=== PATIENT | male | born 1955 | race African-American/Black ===

== ENCOUNTER 2022-01-06 15:01 | Emergency (ER) | payer OTHER ==
[~2022-01-06] VITALS: Ht 188 cm; Wt 93.4 kg
[2022-01-06 15:01] VITALS: BP 122/68
--- NOTE | 2022-01-06 15:03 | NUR ---
PT AD YA, VIA GURNEY TO BED 08.
[2022-01-06] MEDS ORDERED: MORPHINE SULFATE 4 MG/ML SYR IVP ONE ×2 (15:10→17:10)
[2022-01-06] MEDS ORDERED: NACL 0.9% 1,000 ML IV ONE (15:15)
--- NOTE | 2022-01-06 15:24 | NUR ---
XRAY AT BEDSIDE
--- NOTE | 2022-01-06 15:40 | NUR ---
66YO MALE PT BIBA FROM [facility] C/O THROBBING 10/10 L KNEE PAIN XTODAY. PT REPORTS FREQUENT REOCCURING KNEE DISLOCATIONS WHICH HE WILL SELF TREAT AND "POP BACK INTO PLACE". PT STATES HEARING A "POP" WHEN ATTEMPING TO LIFT WHILE SITTING WAITING FOR DIALYSIS AT 11AM THIS MORNING. PT UNABLE TO BEAR WEIGHT ON L LEG AT THIS TIME. PT AMBULATES USING CANE AT HOME. PT KNEE PRESENTS WITH MILD SWELLING AND TENDER TO TOUCH. DENIES NUMBING OR LOSS OF SENSATION. PT UNABLE TO LIFT LEG OR BEND AT KNEE. PT DENIES TAKING MEDICATION FOR PAIN PRIOR TO ARRIVAL. PT AAOX4, NO VISIBLE DISTRESS, RESPIRATIONS EVEN AND UNLABORED. HX: DENIES NKA
--- NOTE | 2022-01-06 16:00 | NUR ---
Pain medication given for pt knee pain. Non-pharm interventions ineffective. VSS
[2022-01-06] MEDS ORDERED: oxyCODONE/APAP 5/325 MG 1 TAB TAB PO ONE (16:55)
[2022-01-06] MEDS ORDERED: MORPHINE SULFATE 4 MG/ML SYR ONE (17:12)
[2022-01-06 17:17] VITALS: BP 141/65
[2022-01-06] MEDS ORDERED: ACET-10509 PO (17:27)
--- NOTE | 2022-01-06 17:31 | NUR ---
PER ER MD PT L KNEE IMMOBILIZER APPLIED. + CMS AFTER APPLICATION. PT TOLERATED SPLINT
--- NOTE | 2022-01-06 18:20 | NUR ---
PT PROVIDED CRUTCHES AND TAUGHT ONE ON ONE. PT RETURNED SAFE DEMONSTRATION OF CRUTCHES.
--- NOTE | 2022-01-06 18:26 | NUR ---
CALLED [facility] TO INFORM THEM OF PTS DISCHARGE. HOUSE SUP CALLED FOR SHARI. BRUCE AT [facility] WILL ASSIST PT BACK INTO FACILITY.
--- NOTE | 2022-01-06 18:36 | NUR ---
Patient discharged with v/s stable. Written and verbal after care instructions FOR PATELLAR DISLOCATION given and explained. Patient alert, oriented and verbalized understanding of instructions. Wheel Chair Assisted with to car. All questions addressed prior to discharge. ID band removed. Patient advised to follow up with PMD. Rx of TYLENOL EXTRA STRENGTJ TAB given. Opportunity to ask questions provided and answered. PT PROVIDED WITH UBER RIDE TO [facility]. SANDI CALLED AND NOTIFIED.
--- NOTE | 2022-01-06 18:37 | NUR ---
The patient's care was reviewed and supervised by Amber Grant RN.
== END 2022-01-06 18:36 | disposition home or self-care (01) ==
LOC: MED 15:01
DX: S83.095A Other dislocation of left patella, initial encounter (principal); E11.9 Type 2 diabetes mellitus without complications; N18.6 End stage renal disease; Z79.4 Long term (current) use of insulin; Z79.899 Other long term (current) drug therapy; W18.30XA Fall on same level, unspecified, initial encounter; Y93.89 Activity, other specified; Y92.89 Other specified places as the place of occurrence of the external cause; Y99.8 Other external cause status
CPT/HCPCS: 29505; 73562; 96361; 96374; 96376; 99284; J2270; J7030

== ENCOUNTER 2022-06-22 00:29 | Inpatient (IN) | payer OTHER ==
[~2022-06-22] VITALS: Ht 188 cm; Wt 93.4 kg
[~2022-06-22 00:29] MED LIST: ACET-10509 PO
--- NOTE | 2022-06-22 00:32 | NUR ---
PT FELTON ALS. TAKEN TO BED 1
[2022-06-22 00:44] VITALS: BP 185/84
[2022-06-22] MEDS ORDERED: HYDROcodone/APAP 5/325 MG 1 TAB TAB PO ONE (00:45)
--- NOTE | 2022-06-22 00:45 | NUR ---
Patient resting in bed, A/Ox4, chest rise and fall symmetrical, no s/s of distress.
--- NOTE | 2022-06-22 00:50 | NUR ---
Dr. Shaffer at bedside with patient.
[2022-06-22 01:05] LABS: BASOPHILS % (AUTO) 0.6 % (0.0-2.0); EOSINOPHILS # (AUTO) 0.1 K/uL (0-0.4); EOSINOPHILS % (AUTO) 1.5 % (0.0-4.0); HEMATOCRIT 31.7 % (36-52); HEMOGLOBIN 10.4 g/dL (12.0-18.0); LYMPHOCYTES # (AUTO) 0.8 K/uL (2.0-11.5); LYMPHOCYTES % (AUTO) 18.3 % (20.5-51.1); MEAN CORPUSCULAR HEMOGLOBIN 30 pg (27-31); MEAN CORPUSCULAR HGB CONC 33 g/dL (33-37); MEAN CORPUSCULAR VOLUME 90.7 fL (80-94); MONOCYTES # (AUTO) 0.3 K/uL (0.8-1.0); MONOCYTES % (AUTO) 6.7 % (1.7-9.3); NEUTROPHILS % (AUTO) 72.9 % (42.2-75.2); PLATELET COUNT (AUTO) 139 K/uL (140-450); RED BLOOD CELL COUNT(AUTO) 3.49 MIL/uL (4.20-6.10); RED CELL DISTRIBUTION WIDTH 13.9 % (11.6-13.7); WHITE BLOOD COUNT (AUTO) 4.1 K/uL (4.8-10.8)
[2022-06-22 01:23] LABS: ALBUMIN 2.6 g/dL (3.4-5.0); CARBON DIOXIDE 29.6 mmol/L (21-32); CREATININE 10.7 mg/dL (0.6-1.3); POTASSIUM 4.6 mmol/L (3.5-5.1); TOTAL BILIRUBIN 0.7 mg/dL (0.0-1.0)
[2022-06-22] MEDS ORDERED: ACET-8905 PO (01:27)
[2022-06-22] MEDS ORDERED: LORA10TA19 PO (01:27)
[2022-06-22] MEDS ORDERED: GABA100C PO (01:27)
[2022-06-22] MEDS ORDERED: KETO5SOL OP (01:27)
[2022-06-22] MEDS ORDERED: ACET500P13 PO (01:27)
[2022-06-22] MEDS ORDERED: OFLOS OP (01:27)
[2022-06-22] MEDS ORDERED: SILD100T PO (01:27)
[2022-06-22] MEDS ORDERED: LISI-487 PO (01:27)
[2022-06-22] MEDS ORDERED: TEMA15CA24 PO (01:27)
[2022-06-22] MEDS ORDERED: INSU100V17 SQ (01:27)
[2022-06-22] MEDS ORDERED: CALC667T8 PO (01:27)
[2022-06-22] MEDS ORDERED: DEXT1DRO4 OP (01:27)
[2022-06-22] MEDS ORDERED: PRED5DRO OP (01:27)
[2022-06-22 01:29] LABS: MAGNESIUM 2.2 mg/dL (1.8-2.4)
--- NOTE | 2022-06-22 01:50 | NUR ---
Patient resting in bed, A/Ox4, chest rise and fall symmetrical, no s/s of distress.
--- NOTE | 2022-06-22 03:00 | NUR ---
Patient resting in bed, A/Ox4, chest rise and fall symmetrical, no s/s of distress.
--- NOTE | 2022-06-22 03:56 | NUR ---
Patient will be admitted to care of Keturah CALVIN. Admited to Tele. Will go to room 112B. Belongings list completed. Report to Keturah CALVIN. Keturah CALVIN verbalized understanding of report, no further questions.
[2022-06-22 04:05] VITALS: BP 157/82
--- NOTE | 2022-06-22 04:05 | NUR ---
RECEIVED PT A NEW ADMIT FROM ER. PATIENT IS AWAKE, ALERT AND ORIENTED X 4. ABLE TO AMBULATE WITH CANE. DENIES PAIN AT THIS TIME. DENIES SHORTNESS OF BREATH AT THIS TIME. LEFT FOOT WOUND AND RIGHT BIG TOE SCAB NOTED, PICTURES TAKEN AN PLACED IN THE CHART. SKIN WARM AND DRY TO TOUCH. LEFT ARM AV SHUNT NOTED. BED IN THE LOWEST AND LOCKED POSITION, CALL LIGHT IN REACH, INSTRUCTED PT TO CALL IF ASSISTANCE IS NEEDED.PT VERBALLY AGREED.
[2022-06-22] MEDS ORDERED: INSULIN LISPRO SLIDING SCALE 100 UNITS/ML VIAL SUBQ PRN ×2 (04:50→07:55)
--- NOTE | 2022-06-22 06:24 | NUR ---
PROVIDED JUICE AND CRACKERS PER PT'S REQUEST. DENIES PAIN AT THIS TIME. NO DISTRESS NOTED. ALL NEEDS ATTENDED TO. SAFETY PRECAUTIONS IN PLACE, CALL LIGHT IN REACH.
[2022-06-22 06:50] LABS: ALBUMIN 2.5 g/dL (3.4-5.0); ANION GAP 18.4 (8-16); CARBON DIOXIDE 29.1 mmol/L (21-32); POTASSIUM 4.5 mmol/L (3.5-5.1); TOTAL BILIRUBIN 0.7 mg/dL (0.0-1.0)
[2022-06-22] MEDS ORDERED: BLOOD GLUCOSE MONITORING 1 DEV DEV FS SCH (07:30)
[2022-06-22] MEDS ORDERED: MAG SULF 2000 MG/WATER PREMIX 50 ML IV PRN (07:50)
[2022-06-22] MEDS ORDERED: LORazepam 2 MG/ML VIAL IVP PRN (07:50)
[2022-06-22] MEDS ORDERED: POTASSIUM CHLORIDE 10 MEQ TABER PO PRN (07:50)
[2022-06-22] MEDS ORDERED: DOCUSATE SODIUM 100 MG GELCAP PO PRN (07:50)
[2022-06-22] MEDS ORDERED: ACETAMINOPHEN 325 MG TAB PO PRN (07:50)
[2022-06-22] MEDS ORDERED: ONDANSETRON 4 MG/2 ML VIAL IVP PRN (07:50)
[2022-06-22] MEDS ORDERED: DEXTROSE 50% 50 ML SYR IVP PRN (07:55)
[2022-06-22 08:00] VITALS: BP 155/78
--- NOTE | 2022-06-22 08:14 | NUR ---
RECEIVED PT FROM HOUSE DESIGNER NURSE FOR CONTINUITY OF CARE. PT IN BED AWAKE. AOX4. RESPIRATIONS EVEN AND UNLABORED ON RA. NO SOB, NO DISTRESS NOTED. IV ON R WRIST. L ARM AV SHUNT NOTED. CALL LIGHT WITHIN REACH. PT INSTRUCTED TO USE CALL LIGHT FOR ASSISTANCE. ALL SAFETY MEASURES IN PLACE.
[2022-06-22] MEDS: GABAPENTIN 100 MG CAP PO SCH (08:54)
[2022-06-22] MEDS: lisinopriL 20 MG TAB PO SCH (08:54)
--- NOTE | 2022-06-22 10:26 | NUR ---
PT IN BED ASLEEP. VISIBLE CHEST RISE AND FALL. NO DISTRESS NOTED. CALL LIGHT WITHIN REACH.
--- NOTE | 2022-06-22 10:27 | NUR ---
PATIENT HAS BEEN SCREENED AND CATEGORIZED MODERATE NUTRITION RISK. PATIENT WILL BE SEEN WITHIN 3-5 DAYS OF ADMISSION. REVIEWED BY HAILEE THOMPSON RD
[2022-06-22 12:00] VITALS: BP 172/76
[2022-06-22] MEDS: BLOOD GLUCOSE MONITORING 1 DEV DEV FS SCH ×3 (12:01→20:43)
[2022-06-22] MEDS: PIPERACILLIN/TAZOBACTAM 2.25 GM in DEXTROSE 5% 50 ML IV SCH ×2 (13:00→20:03)
--- NOTE | 2022-06-22 13:00 | NUR ---
ZOSYN DUE AT 1300 NON ADMINISTERED PT IS RECEIVING HEMODIALYSIS.
[2022-06-22 16:00] VITALS: BP 172/73
--- NOTE | 2022-06-22 19:15 | NUR ---
RECEIVED BEDSIDE REPORT FROM DAY SHIFT MARIXA LOFTON FOR CONTINUITY OF CARE. PT IS AAOX4 ON RA. PT NOT IN ANY RESPIRATORY DISTRESS. PT HAS RIGHT HAND 22 GAUGE SALINE LOCK. BED AT THE LOWEST POSITION. HEAD OF THE BED RAISED. WILL CONTINUE TO MONITOR THE PT.
[2022-06-22 20:00] VITALS: BP 150/70
[2022-06-22] MEDS: ZOLPIDEM 10 MG TAB PO PRN (20:03)
[2022-06-22] MEDS: MORPHINE SULFATE 2 MG/ML SYR IVP PRN (20:30)
--- NOTE | 2022-06-22 20:42 | NUR ---
SCHEDULE MEDICATIONS GIVEN. ALSO PT COMPLAIN OF FOOT PAIN 02/01. MORPHINE WAS GIVEN PER MD ORDER. NO OTHER COMPLAINS. WILL CONTINUE TO MONITOR THE PT.
--- NOTE | 2022-06-22 20:43 | NUR ---
BLOOD GLUCOSE CHECKED. RESULTS OF 161 GLUCOSE. PT REFUSED ANY COVERAGE.
[2022-06-22] MEDS ORDERED: TEMAZEPAM 15 MG CAP PO SCH (21:00)
[2022-06-23] VITALS: BP 162/67
--- NOTE | 2022-06-23 00:30 | NUR ---
PT OBSERVED. PT IS NOT IN ANY DISTRESS. PT IS BREATHING EVEN AND UNLABORED. CALL LIGHT WITHIN REACH. WILL CONTINUE TO MONITOR THE PT.
[2022-06-23] MEDS: MORPHINE SULFATE 2 MG/ML SYR IVP PRN (03:54)
--- NOTE | 2022-06-23 03:54 | NUR ---
PT COMPLAIN OF SEVERE PAIN ON FOOT WITH ULCER. MORPHINE GIVEN. NO OTHER COMPLAINS. WILL CONTINUE TO MONITOR THE PT.
[2022-06-23 04:00] VITALS: BP 148/71
[2022-06-23] MEDS: PIPERACILLIN/TAZOBACTAM 2.25 GM in DEXTROSE 5% 50 ML IV SCH (04:10)
[2022-06-23 06:27] LABS: BASOPHILS # (AUTO) 0.1 K/uL (0.00-0.22); BASOPHILS % (AUTO) 1.7 % (0.0-2.0); EOSINOPHILS # (AUTO) 0.1 K/uL (0-0.4); EOSINOPHILS % (AUTO) 2.3 % (0.0-4.0); HEMOGLOBIN 10.1 g/dL (12.0-18.0); LYMPHOCYTES # (AUTO) 0.8 K/uL (2.0-11.5); LYMPHOCYTES % (AUTO) 22.5 % (20.5-51.1); MEAN CORPUSCULAR HEMOGLOBIN 29 pg (27-31); MEAN CORPUSCULAR HGB CONC 33 g/dL (33-37); MEAN CORPUSCULAR VOLUME 89.8 fL (80-94); MONOCYTES # (AUTO) 0.3 K/uL (0.8-1.0); MONOCYTES % (AUTO) 7.6 % (1.7-9.3); NEUTROPHILS # (AUTO) 2.5 K/uL (1.8-7.7); NEUTROPHILS % (AUTO) 65.9 % (42.2-75.2); PLATELET COUNT (AUTO) 156 K/uL (140-450); RED BLOOD CELL COUNT(AUTO) 3.45 MIL/uL (4.20-6.10); WHITE BLOOD COUNT (AUTO) 3.7 K/uL (4.8-10.8)
[2022-06-23 06:52] LABS: ANION GAP 13.2 (8-16); CARBON DIOXIDE 33.6 mmol/L (21-32); POTASSIUM 4.8 mmol/L (3.5-5.1)
[2022-06-23] MEDS: BLOOD GLUCOSE MONITORING 1 DEV DEV FS SCH ×4 (06:57→20:22)
--- NOTE | 2022-06-23 07:20 | NUR ---
ENDORSED PT TO DAY SHIFT RN FOR CONTINUITY OF CARE. PT IS STABLE.
--- NOTE | 2022-06-23 07:21 | NUR ---
RECEIVED PT FROM SLEEVE PRESSER OPERATOR NURSE FOR CONTINUITY OF CARE. PT IN BED WATCHING TV. AOX4. PT ABLE TO VERBALIZE NEEDS. RESPIRATIONS EVEN AND UNLABORED ON RA. NO SOB, NO DISTRESS NOTED. BED IN LOWEST POSITION. CALL LIGHT WITHIN REACH.
[2022-06-23 07:44] LABS: CREATININE 8.4 mg/dL (0.6-1.3)
[2022-06-23 08:00] VITALS: BP 136/76
[2022-06-23] MEDS ORDERED: EPOETIN ALFA-EPBX 10,000 UNITS/ML VIAL SUBQ SCH (08:27)
[2022-06-23] MEDS: lisinopriL 20 MG TAB PO SCH (09:20)
[2022-06-23] MEDS: NIFEdipine 30 MG TABER PO SCH (09:20)
[2022-06-23] MEDS: GABAPENTIN 100 MG CAP PO SCH (09:21)
--- NOTE | 2022-06-23 09:54 | NUR ---
WOUND CARE NOTE: PT. ADMITTED WITH DIABETIC ULCERS TO LEFT PLANTAR AND RIGHT HALLUX. WOUND CONSULT NOT DONE, PT. REFUSES WOUND CONSULT. AND REFUSE IN HOUSE PARK SERVICES SPECIALIST CONSULT WHEN RECOMMEND. PER PT. "NO ONE TOUCH IT, I WILL SEE MY OWN FOOT DOCTOR DR. SANDRA WITH [employer] THAT COVER MY INSURANCE". ABOVE INFORMATION INFORM DR. REED AND PRIMARY NURSE ELBA.
[2022-06-23] MEDS ORDERED: OSELTAMIVIR PHOSPHATE 30 MG CAP PO SCH (10:30)
[2022-06-23 12:00] VITALS: BP 130/80
--- NOTE | 2022-06-23 12:00 | NUR ---
PT IV INFILTRATED. REMOVED IV, PRESSURE APPLIED. ATTEMPTED IV X2 TRIES, WAS UNSUCCESSFUL.
[2022-06-23] MEDS ORDERED: OSEL30CA1 PO (13:16)
--- NOTE | 2022-06-23 14:00 | NUR ---
NURSE ROLDAN ATTEMPTED TO PLACE IV X2 TRIES WAS UNSUCCESSFUL.
--- NOTE | 2022-06-23 15:40 | NUR ---
RECEIVED CALL FROM DIALYSIS NURSE SHE ASKED IF PT WOULD BE DISCHARGED TODAY I ANSWERED HER "NO PT CANT LEAVE TODAY UNTIL HE HAS DIALYSIS, AND DUE TO TRANSPORTATION HE WILL BE LEAVING TOMORROW. DIALYSIS NURSE STATES "OKAY BYE".
[2022-06-23 16:00] VITALS: BP 146/66
--- NOTE | 2022-06-23 16:00 | NUR ---
MARIXA MORIN ATTEMPTED TO PLACE IV ON PT X2 TRIES AND WAS UNSUCCESSFUL. NO IV PLACEMENT AT THIS TIME.
--- NOTE | 2022-06-23 16:50 | NUR ---
SPOKE TO RESEARCH CENTER PARTNER. PT IS TO BE D/C TOMORROW MORNING. TRANSPORT [facility].
--- NOTE | 2022-06-23 16:52 | NUR ---
DC PLANNING: PATIENT IS FROM [facility] PLS CALL [facility] [phone] WHEN HE HAS A DC ORDER. NOTIFIED ROLLY CALVIN.
--- NOTE | 2022-06-23 18:52 | NUR ---
SPOKE TO DIALYSIS NURSE TO ASK WHEN PT WILL RECEIVE DIALYSIS. NURSE STATED THAT SHE SPOKE TO ME EARLIER. DIALYSIS NURSE STATES "YOU SAID PT WOULD LEAVE TOMORROW, MY NURSE ALREADY LEFT". RESTATED THAT PT IS TO BE DISCHARGED TOMORROW MORNING SINCE HE WAS SCHEDULED TO RECEIVE DIALYSIS TODAY AND TRANSPORTATION BACK TO [facility] WAS ARRANGED FOR SUNDAY MORNING. WE WERE WAITING FOR DIALYSIS TO TAKE PLACE TODAY. DIALYSIS NURSE STATES PT WILL RECEIVE DIALYSIS CATERPILLAR TRACTOR OPERATOR TOMORROW.
--- NOTE | 2022-06-23 19:18 | NUR ---
ENDORSED PT TO LANDING WORKER NURSE FOR CONTINUITY OF CARE. PT IN STABLE CONDITION.
--- NOTE | 2022-06-23 19:30 | NUR ---
RECEIVED BEDSIDE REPORT FROM DAY SHIFT RN FOR CONTINUITY OF CARE. PT IS AAOX4 ON RA. PT NOT IN ANY RESPIRATORY DISTRESS. HAS NO IV SITE AND DAY SHIFT WAS UNABLE TO GET IV ACCESS. BED AT THE LOWEST POSITION. HEAD OF THE BED RAISED. WILL CONTINUE TO MONITOR THE PT.
[2022-06-23 20:00] VITALS: BP 138/70
[2022-06-23] MEDS: ZOLPIDEM 10 MG TAB PO PRN (20:17)
--- NOTE | 2022-06-23 20:20 | NUR ---
PT WANTED SOMETHING FOR SLEEP. DUANE GIVEN. PER MD ORDER. NO OTHER COMPLAINS. WILL CONTINUE TO MONITOR THE PT.
--- NOTE | 2022-06-23 23:45 | NUR ---
OBSERVED PT. PT IS SLEEPING COMFORTABLY IN BED. PT NOT IN ANY RESPIRATORY DISTRESS. CALL LIGHT WITHIN REACH. WILL CONTINUE TO MONITOR THE PT.
[2022-06-24] VITALS: BP 135/67
--- NOTE | 2022-06-24 02:50 | NUR ---
OBSERVED PT. PT IS SLEEPING COMFORTABLY IN BED. PT NOT IN ANY RESPIRATORY DISTRESS. CALL LIGHT WITHIN REACH. WILL CONTINUE TO MONITOR THE PT.
[2022-06-24 04:00] VITALS: BP 147/75
--- NOTE | 2022-06-24 04:10 | NUR ---
VITAL SIGNS TAKEN AND STABLE. SAFETY PRECAUTIONS TAKEN. WILL CONTINUE TO MONITOR THE PT.
--- NOTE | 2022-06-24 06:10 | NUR ---
HD NURSE IS HERE TO START PT ON DIALYSIS.
[2022-06-24 06:27] LABS: BASOPHILS % (AUTO) 1.2 % (0.0-2.0); EOSINOPHILS # (AUTO) 0.1 K/uL (0-0.4); EOSINOPHILS % (AUTO) 2.2 % (0.0-4.0); HEMATOCRIT 32.4 % (36-52); HEMOGLOBIN 10.6 g/dL (12.0-18.0); LYMPHOCYTES # (AUTO) 1.1 K/uL (2.0-11.5); LYMPHOCYTES % (AUTO) 25.9 % (20.5-51.1); MEAN CORPUSCULAR HEMOGLOBIN 29 pg (27-31); MEAN CORPUSCULAR HGB CONC 33 g/dL (33-37); MEAN CORPUSCULAR VOLUME 89.8 fL (80-94); MONOCYTES # (AUTO) 0.3 K/uL (0.8-1.0); MONOCYTES % (AUTO) 7.6 % (1.7-9.3); NEUTROPHILS # (AUTO) 2.6 K/uL (1.8-7.7); NEUTROPHILS % (AUTO) 63.1 % (42.2-75.2); PLATELET COUNT (AUTO) 158 K/uL (140-450); RED BLOOD CELL COUNT(AUTO) 3.61 MIL/uL (4.20-6.10); RED CELL DISTRIBUTION WIDTH 14.1 % (11.6-13.7); WHITE BLOOD COUNT (AUTO) 4.1 K/uL (4.8-10.8)
[2022-06-24 06:45] LABS: ANION GAP 16.6 (8-16); CARBON DIOXIDE 28.4 mmol/L (21-32)
[2022-06-24 06:47] LABS: CREATININE 10.2 mg/dL (0.6-1.3)
--- NOTE | 2022-06-24 07:10 | NUR ---
ENDORSED PT TO DAY SHIFT RN FOR CONTINUITY OF CARE. PT IS STABLE.
--- NOTE | 2022-06-24 07:11 | NUR ---
ASSUMED CONTINUITY OF CARE. PT. ON HD AT THIS TIME. NO SIGNS AND SYMPTOMS OF DISCOMFORT NOTED. INITIAL ASSESSMENT DONE. DROPLET AND FALL PRECAUTION APPLIED. CALL LIGHT WITHIN REACH.
[2022-06-24 08:00] VITALS: BP 157/77
[2022-06-24] MEDS: BLOOD GLUCOSE MONITORING 1 DEV DEV FS SCH (08:21)
[2022-06-24] MEDS ORDERED: OSELTAMIVIR PHOSPHATE 30 MG CAP PO SCH (09:00)
--- NOTE | 2022-06-24 09:15 | NUR ---
HD NURSE REPORTED THAT HD WAS DONE AND OUTPUT WAS 3 LITERS. PT. EATING BREAKFAST AT THIS TIME. NO SOB, NOTED.
[2022-06-24] MEDS: GABAPENTIN 100 MG CAP PO SCH (09:21)
[2022-06-24] MEDS: NIFEdipine 30 MG TABER PO SCH (09:21)
[2022-06-24] MEDS: lisinopriL 20 MG TAB PO SCH (09:22)
--- NOTE | 2022-06-24 10:25 | NUR ---
INFORMED DR. GRIFFITH THAT PT. HD WAS DONE AT 0915 AND WILL BE D/C BACK TO [facility]. NO ADDITIONAL ORDER RECEIVED. INFORMED LABOR ARBITRATOR LUDWIG.
--- NOTE | 2022-06-24 10:57 | NUR ---
CALLED CHRISTINA LEO (PT. SISTER) AT REGARDING PT D/C BACK TO [facility]. LEFT MESSAGE AND CALL BACK NUMBER.
--- NOTE | 2022-06-24 10:58 | NUR ---
CALLED ALON COREAS AT AND SPOKE TO MEHRDAD REGARDING PT. D/C BACK TO THEIR FACILITY. INFORMED SKEIN YARN DYER ROSA STEELE.
--- NOTE | 2022-06-24 11:45 | NUR ---
D/C VIA WHEELCHAIR BACK TO [facility]. PT. BROUGHT INFRONT OF ER FOR UBER TRANSPORT PER GUM SCORING MACHINE OPERATOR -ROSA. IN STABLE CONDITION.
== END 2022-06-24 11:53 | DRG 133 ==
LOC: MED 00:29 → MTU 02:26
PROVIDERS: ADMIT Hospitalist; ATTEND Hospitalist
PROC: 5A1D70Z Performance of Urinary Filtration, Intermittent, Less than 6 Hours Per Day (ICD-10-PCS; principal; 2022-06-22)
PROC: 5A1D70Z Performance of Urinary Filtration, Intermittent, Less than 6 Hours Per Day (ICD-10-PCS; 2022-06-24)
DX: J96.01 Acute respiratory failure with hypoxia (principal); N17.0 Acute kidney failure with tubular necrosis; J10.00 Influenza due to other identified influenza virus with unspecified type of pneumonia; E43 Unspecified severe protein-calorie malnutrition; I12.0 Hypertensive chronic kidney disease with stage 5 chronic kidney disease or end stage renal disease; E83.51 Hypocalcemia; D63.8 Anemia in other chronic diseases classified elsewhere; N18.6 End stage renal disease; E11.22 Type 2 diabetes mellitus with diabetic chronic kidney disease; E87.70 Fluid overload, unspecified; L97.519 Non-pressure chronic ulcer of other part of right foot with unspecified severity; Z20.822 Contact with and (suspected) exposure to COVID-19; L97.529 Non-pressure chronic ulcer of other part of left foot with unspecified severity; Z79.1 Long term (current) use of non-steroidal anti-inflammatories (NSAID); Z79.899 Other long term (current) drug therapy; Z68.26 Body mass index [BMI] 26.0-26.9, adult
CPT/HCPCS: 36415; 71045; 80048; 80053; 82948; 83735; 83880; 84484; 85025; 87081; 93005; 99285; J1815; J2270; J2543; J7060; Q0092; Q5106

== ENCOUNTER 2022-07-30 02:47 | Emergency (ER) | payer OTHER ==
[~2022-07-30] VITALS: Ht 188 cm; Wt 93.9 kg
[~2022-07-30 02:47] MED LIST changes: +ACET-8905 PO; +ACET500P13 PO; +CALC667T8 PO; +DEXT1DRO4 OP; +GABA100C PO; +INSU100V17 SQ; +KETO5SOL OP; +LISI-487 PO; +LORA10TA19 PO; +OFLOS OP; +OSEL30CA1 PO; +PRED5DRO OP; +SILD100T PO; +TEMA15CA24 PO
[2022-07-30 02:51] VITALS: BP 186/76
--- NOTE | 2022-07-30 03:00 | NUR ---
PT FELTON DUONG. TAKEN TO BED 11
[2022-07-30] MEDS ORDERED: LISI-487 PO (03:17)
[2022-07-30] MEDS ORDERED: LORA10TA19 PO (03:17)
[2022-07-30] MEDS ORDERED: GABA-636 PO (03:17)
[2022-07-30] MEDS ORDERED: TEMA15CA24 PO (03:17)
[2022-07-30] MEDS ORDERED: ACET-8905 PO (03:17)
[2022-07-30] MEDS ORDERED: INSU100I47 SQ (03:17)
[2022-07-30] MEDS ORDERED: SILD100T PO (03:17)
--- NOTE | 2022-07-30 03:20 | NUR ---
Patient lying in bed, A/Ox4, chest rise and fall symmetrical, no c/o pain or s/s of distress
--- NOTE | 2022-07-30 05:02 | NUR ---
Patient lying in bed, A/Ox4, chest rise and fall symmetrical, no c/o pain or s/s of distress
[2022-07-30 05:36] LABS: EOSINOPHILS # (AUTO) 0.1 K/uL (0-0.4); EOSINOPHILS % (AUTO) 2.3 % (0.0-4.0); HEMATOCRIT 31.6 % (36-52); HEMOGLOBIN 10.2 g/dL (12.0-18.0); LYMPHOCYTES # (AUTO) 0.9 K/uL (2.0-11.5); LYMPHOCYTES % (AUTO) 29.6 % (20.5-51.1); MEAN CORPUSCULAR HEMOGLOBIN 29 pg (27-31); MEAN CORPUSCULAR HGB CONC 32 g/dL (33-37); MEAN CORPUSCULAR VOLUME 88.6 fL (80-94); MONOCYTES # (AUTO) 0.3 K/uL (0.8-1.0); MONOCYTES % (AUTO) 8.8 % (1.7-9.3); NEUTROPHILS # (AUTO) 1.7 K/uL (1.8-7.7); NEUTROPHILS % (AUTO) 58.3 % (42.2-75.2); PLATELET COUNT (AUTO) 101 K/uL (140-450); RED BLOOD CELL COUNT(AUTO) 3.57 MIL/uL (4.20-6.10); RED CELL DISTRIBUTION WIDTH 16.4 % (11.6-13.7)
[2022-07-30 05:58] LABS: ALBUMIN 3.4 g/dL (3.4-5.0); ANION GAP 18.8 (8-16); CARBON DIOXIDE 30.6 mmol/L (21-32); POTASSIUM 4.4 mmol/L (3.5-5.1); TOTAL BILIRUBIN 0.8 mg/dL (0.0-1.0)
[2022-07-30 06:06] LABS: CREATININE 9.7 mg/dL (0.6-1.3)
--- NOTE | 2022-07-30 06:06 | NUR ---
Dr. Hicks examining patient.
[2022-07-30] MEDS ORDERED: lisinopriL 20 MG TAB PO ONE (06:20)
--- NOTE | 2022-07-30 07:01 | NUR ---
Patient lying in bed, A/Ox4, chest rise and fall symmetrical, no c/o pain or s/s of distress
--- NOTE | 2022-07-30 07:12 | NUR ---
Change of shift report given to AM shift Nurse Bean CALVIN. AM shift Nurse Bean RN verbalized understanding of report, no further questions.
--- NOTE | 2022-07-30 07:15 | NUR ---
HANDOFF RECEIVED FROM GUADALUPE CALVIN. VITAL SIGNS TAKEN AND NOTABLE DROB IN SYSTOLIC. PT ALSO ENDORSES 7/10 HEADACHE. OTHYERWISE VITAL SIGNS ARE STABLE AND AFEBRILE. DR SANDOVAL NOTIFIED OF PAIN COMPLAINT IN WHICH PAIN MEDS WERE ORDERED.
[2022-07-30] MEDS ORDERED: HYDROcodone/APAP 5/325 MG 1 TAB TAB PO ONE (08:35)
[2022-07-30 10:27] VITALS: BP 161/99
--- NOTE | 2022-07-30 10:28 | NUR ---
Patient discharged with v/s stable. Written and verbal after care instructions given and explained. Patient verbalized understanding. Ambulance Transport with to [facility]. All questions addressed prior to discharge. Advised to follow up with PMD.
--- NOTE | 2022-07-30 14:13 | NUR ---
CHRISTINA LEO states she is coming to pick pt up
--- NOTE | 2022-07-30 15:00 | NUR ---
Patient discharged with v/s stable. Written and verbal after care instructions given and explained. Patient verbalized understanding. Ambulatory with SISTER VIA CANE to car. All questions addressed prior to discharge. Advised to follow up with PMD.
== END 2022-07-30 14:50 | disposition home or self-care (01) ==
LOC: MED 02:47
DX: I12.0 Hypertensive chronic kidney disease with stage 5 chronic kidney disease or end stage renal disease (principal); E11.22 Type 2 diabetes mellitus with diabetic chronic kidney disease; N18.6 End stage renal disease; R51.9 Headache, unspecified; Z99.2 Dependence on renal dialysis; Z79.899 Other long term (current) drug therapy
CPT/HCPCS: 36415; 70450; 71045; 80053; 83880; 84484; 85025; 93005; 99285

== ENCOUNTER 2022-10-15 01:01 | Emergency (ER) | payer OTHER ==
[~2022-10-15] VITALS: Ht 188 cm; Wt 91.6 kg
[~2022-10-15 01:01] MED LIST changes: -DEXT1DRO4 OP; +GABA-636 PO; -GABA100C PO; +INSU100I47 SQ; -INSU100V17 SQ; -OSEL30CA1 PO
--- NOTE | 2022-10-15 01:04 | NUR ---
PT BIBA BLS ER BED 6
[2022-10-15 01:05] VITALS: BP 190/98
[2022-10-15] MEDS ORDERED: KETOROLAC 30 MG/ML VIAL IM ONE (01:10)
[2022-10-15] MEDS ORDERED: MORPHINE SULFATE 4 MG/ML SYR IM ONE (01:10)
--- NOTE | 2022-10-15 01:15 | NUR ---
PT SPEAKING TO TELE NEURO AT BEDSIDE
[2022-10-15] MEDS ORDERED: MORPHINE SULFATE 4 MG/ML SYR IVP ONE ×2 (01:30→05:05)
[2022-10-15 01:32] LABS: BASOPHILS # (AUTO) 0.1 K/uL (0.00-0.22); BASOPHILS % (AUTO) 1.2 % (0.0-2.0); EOSINOPHILS # (AUTO) 0.1 K/uL (0-0.4); EOSINOPHILS % (AUTO) 2.1 % (0.0-4.0); HEMATOCRIT 29.7 % (36-52); HEMOGLOBIN 9.8 g/dL (12.0-18.0); LYMPHOCYTES # (AUTO) 1.1 K/uL (2.0-11.5); LYMPHOCYTES % (AUTO) 25.5 % (20.5-51.1); MEAN CORPUSCULAR HEMOGLOBIN 30 pg (27-31); MEAN CORPUSCULAR HGB CONC 33 g/dL (33-37); MEAN CORPUSCULAR VOLUME 89.3 fL (80-94); MONOCYTES # (AUTO) 0.5 K/uL (0.8-1.0); NEUTROPHILS # (AUTO) 2.7 K/uL (1.8-7.7); NEUTROPHILS % (AUTO) 60.2 % (42.2-75.2); PLATELET COUNT (AUTO) 111 K/uL (140-450); RED BLOOD CELL COUNT(AUTO) 3.33 MIL/uL (4.20-6.10); RED CELL DISTRIBUTION WIDTH 16.4 % (11.6-13.7); WHITE BLOOD COUNT (AUTO) 4.4 K/uL (4.8-10.8)
--- NOTE | 2022-10-15 01:45 | NUR ---
67 yo/m joleen from [facility] w c/o R shoulder pain radiating up and down x 1pprox 1 day worsening today, pt denies any injury to shoulder, pt reports difficulty moving arm d/t pain. no other deficits at this time. no signs of trauma noted. pmh: htn, dm, renal failure (mwf) allergies: denies
[2022-10-15 01:51] LABS: PROTHROMBIN TIME 10.6 secs (10.8-13.4)
[2022-10-15 01:52] LABS: ALBUMIN 3.1 g/dL (3.4-5.0); ANION GAP 15.6 (8-16); CARBON DIOXIDE 30.4 mmol/L (21-32); TOTAL BILIRUBIN 0.6 mg/dL (0.0-1.0)
[2022-10-15 01:54] LABS: CREATININE 11.6 mg/dL (0.6-1.3)
[2022-10-15] MEDS ORDERED: ASPIRIN 325 MG TAB PO ONE (02:40)
--- NOTE | 2022-10-15 04:00 | NUR ---
pt resting in bed, breathing even and unlabored.
--- NOTE | 2022-10-15 06:27 | NUR ---
pt report called to jourdan parker from [facility]. eta for tx [phone].
--- NOTE | 2022-10-15 06:33 | NUR ---
pt unable to provide urine at this time.
--- NOTE | 2022-10-15 07:06 | NUR ---
[facility] AT BEDSIDE FOR TRANSPORT
[2022-10-15 07:19] VITALS: BP 159/67
--- NOTE | 2022-10-15 07:19 | NUR ---
Patient to be transferred to [facility]. Is being transferred due to HIGHER LEVEL OF CARE. Receiving facility has accepting physician and available space. ER physician has signed transfer form. Patient or responsible libertarian has agreed to transfer and signed form. Patient belongings inventoried and will be sent with patient. Copy of nursing notes, lab reports, EKG, Physicians Orders and X-rays to be sent with patient. Report called to MARIXA SINGH at receiving facility. JAQUELIN TX PT AT THIS TIME.
== END 2022-10-15 07:19 | disposition short-term general hospital (02) ==
LOC: MED 01:01
DX: M25.511 Pain in right shoulder (principal); Z20.822 Contact with and (suspected) exposure to COVID-19; I10 Essential (primary) hypertension; E11.9 Type 2 diabetes mellitus without complications; N18.9 Chronic kidney disease, unspecified; Z79.4 Long term (current) use of insulin; Z79.899 Other long term (current) drug therapy
CPT/HCPCS: 36415; 71045; 80053; 83880; 84484; 85025; 85610; 85730; 87426; 93005; 96374; 96376; 99285; J2270; Q0092

== ENCOUNTER 2022-10-23 05:30 | Inpatient (IN) | payer OTHER ==
[~2022-10-23] VITALS: Ht 188 cm; Wt 93.4 kg
[2022-10-23 05:35] VITALS: BP 202/98
--- NOTE | 2022-10-23 05:48 | NUR ---
Patient taken to bed 7.
[2022-10-23] MEDS ORDERED: INSU100I7 SQ (05:53)
[2022-10-23] MEDS ORDERED: INSU100I47 SQ (05:58)
[2022-10-23] MEDS ORDERED: [UNRECOGNIZED DRUG - CODE] PO (05:59)
--- NOTE | 2022-10-23 06:00 | NUR ---
67 Y/O M presents with epistaxis m1fbsmys intermittently. pt stated he has been spitting up blood on and off. pt stated he has abdominal pain 4/5 witrh R shoulder pain 10. pt is from [facility], ambulatory with assist. pt stated he hasnt been to his dialysis treatments x1week due to bein in the hospital. pt was seen at [facility] last week for R shoulder pt stated PMH-dialysis, diabetes, HTN, NKA
--- NOTE | 2022-10-23 07:21 | NUR ---
Pt report given to Lucila EDWARD. Transfer of care at this time.
--- NOTE | 2022-10-23 07:22 | NUR ---
REPORT RECEIVED FROM YURI EDWARD. ASSUMED CARE AT THIS TIME
--- NOTE | 2022-10-23 07:25 | NUR ---
pt awake and at rest. on monitor technician. bed at lowest position, bed rails upx2.
[2022-10-23] MEDS ORDERED: ONDANSETRON 4 MG/2 ML VIAL IVP ONE (07:35)
--- NOTE | 2022-10-23 07:46 | NUR ---
xray at bedside
[2022-10-23 08:42] LABS: BASOPHILS # (AUTO) 0.1 K/uL (0.00-0.22); BASOPHILS % (AUTO) 0.7 % (0.0-2.0); EOSINOPHILS % (AUTO) 0.6 % (0.0-4.0); HEMATOCRIT 31.6 % (36-52); HEMOGLOBIN 10.5 g/dL (12.0-18.0); LYMPHOCYTES # (AUTO) 0.9 K/uL (2.0-11.5); LYMPHOCYTES % (AUTO) 10.6 % (20.5-51.1); MEAN CORPUSCULAR HEMOGLOBIN 30 pg (27-31); MEAN CORPUSCULAR HGB CONC 33 g/dL (33-37); MEAN CORPUSCULAR VOLUME 88.9 fL (80-94); MONOCYTES # (AUTO) 0.4 K/uL (0.8-1.0); MONOCYTES % (AUTO) 5.3 % (1.7-9.3); NEUTROPHILS # (AUTO) 6.8 K/uL (1.8-7.7); NEUTROPHILS % (AUTO) 82.8 % (42.2-75.2); PLATELET COUNT (AUTO) 119 K/uL (140-450); RED BLOOD CELL COUNT(AUTO) 3.55 MIL/uL (4.20-6.10); RED CELL DISTRIBUTION WIDTH 16.5 % (11.6-13.7); WHITE BLOOD COUNT (AUTO) 8.2 K/uL (4.8-10.8)
[2022-10-23 08:44] LABS: PROTHROMBIN TIME 11.6 secs (10.8-13.4)
[2022-10-23 08:45] LABS: ALBUMIN 3.4 g/dL (3.4-5.0); ANION GAP 26.8 (8-16); CARBON DIOXIDE 22.5 mmol/L (21-32); TOTAL BILIRUBIN 0.7 mg/dL (0.0-1.0)
[2022-10-23 08:48] LABS: CREATININE 22.4 mg/dL (0.6-1.3); POTASSIUM 7.3 mmol/L (3.5-5.1)
[2022-10-23] MEDS ORDERED: guaiFENesin DM 200/20 MG-10 ML 10 ML UDC PO PRN (09:20)
[2022-10-23] MEDS ORDERED: HYDROcodone/APAP 7.5/325 MG 1 TAB PO PRN (09:20)
[2022-10-23] MEDS ORDERED: ONDANSETRON 4 MG/2 ML VIAL IM/IVP PRN (09:20)
[2022-10-23] MEDS ORDERED: ACETAMINOPHEN 325 MG TAB PO PRN (09:20)
[2022-10-23] MEDS ORDERED: DOCUSATE SODIUM 100 MG GELCAP PO PRN (09:20)
[2022-10-23] MEDS ORDERED: POTASSIUM CHLORIDE 10 MEQ TABER PO PRN (09:20)
[2022-10-23 10:16] LABS: PROTHROMBIN TIME 12.1 secs (10.8-13.4)
[2022-10-23 10:27] LABS: CHOL/HDL RATIO 2.2 (1-4.5); FREE T4 (FREE THYROXINE) 1.12 ng/dL (0.76-1.46); MAGNESIUM 2.6 mg/dL (1.8-2.4); PHOSPHORUS 7.6 mg/dL (2.5-4.9); THYROID STIMULATING HORMONE 2.98 uIU/mL (0.34-3.74)
--- NOTE | 2022-10-23 10:52 | NUR ---
Patient will be admitted to care of MD FERNANDEZ. Admited to TELE. Will go to room 118. Belongings list completed. Report to LALITHA CALVIN .
--- NOTE | 2022-10-23 11:10 | NUR ---
AROUND 1105, NURSE RECEIVE PATIENT FROM ER NURSE THAT PATIENT COME FROM [facility] FOR NOSE BLEED & EPIGASTRIC PAIN. PATIENT MISSING DIALYSIS FOR ABOUT WEEKS; DIAGNOSIS ESRD & EPISTAXIS W/ HX OF HX OF DM, HTN, ESRD ON DIALYSIS @MWF; PATIENT IS FULL CODE, NKA, AMBULATORY WITH CANE, ALERT X 3, ON TELE MONITOR, CARDIAC DIET, USE URINAL, SHUNT AT KWAME, PIV AT R. WRIST 20G. POTASSIUM =7.3, TFB=075; DR. RUTLEDGE IS PROBATE CLERK FOR PATIENT. VITAL WITHIN PATIENT'S BASELINE (T-P-R: 97.1-114-20, BP: 172/88, O2 SAT: 98%); WILL CONTINUE TO MONITOR
[2022-10-23 12:00] VITALS: BP 172/88
--- NOTE | 2022-10-23 14:06 | NUR ---
P.T. NOTES P.T. EVAL COMPLETED; REFER TO EVAL FOR DETAILS.
[2022-10-23 16:00] VITALS: BP 180/89
[2022-10-23] MEDS: GABAPENTIN 100 MG CAP PO SCH (17:00)
--- NOTE | 2022-10-23 19:30 | NUR ---
RECEIVED PATIENT FROM AM NURSE FOR CONTINUITY OF CARE. PT IS STABLE
--- NOTE | 2022-10-23 19:58 | NUR ---
ENDORSE PATIENT IN STABLE CONDITION TO PM SHIFT NURSE AFTER DIALYSIS REMOVE 3 LITER FROM PATIENT. PIV R. WRIST SALINE LOCK
--- NOTE | 2022-10-23 21:00 | NUR ---
PATIENT'S BP AT 180/79. REPORTED TO . ORDERED CLONIDINE 0.1 MG PO Q 4H PRN
[2022-10-23] MEDS ORDERED: CLONIDINE HYDROCHLORIDE 0.1 MG TAB PO PRN (23:00)
[2022-10-24] VITALS: BP 156/68
[2022-10-24] MEDS: ZOLPIDEM 5 MG TAB PO PRN (02:49)
[2022-10-24 04:00] VITALS: BP 139/72
[2022-10-24 07:06] LABS: ANION GAP 16.4 (8-16); CARBON DIOXIDE 32.3 mmol/L (21-32); POTASSIUM 4.7 mmol/L (3.5-5.1)
[2022-10-24 07:11] LABS: CREATININE 14.5 mg/dL (0.6-1.3)
--- NOTE | 2022-10-24 07:30 | NUR ---
RECEIVED REPORT FROM ALMOND PASTE MIXER NURSE. PT CURRENTLY RESTING WITH CHEST RISING AND FALLING. NO ACUTE S/S OF DISTRESS, ALL SAFETY MEASURES IN PLACE. CALL LIGHT WITHIN REACH.
[2022-10-24 07:32] LABS: BASOPHILS % (AUTO) 0.7 % (0.0-2.0); EOSINOPHILS % (AUTO) 0.6 % (0.0-4.0); HEMOGLOBIN 9.9 g/dL (12.0-18.0); LYMPHOCYTES # (AUTO) 0.9 K/uL (2.0-11.5); LYMPHOCYTES % (AUTO) 17.1 % (20.5-51.1); MEAN CORPUSCULAR HEMOGLOBIN 30 pg (27-31); MEAN CORPUSCULAR HGB CONC 34 g/dL (33-37); MEAN CORPUSCULAR VOLUME 86.9 fL (80-94); MONOCYTES # (AUTO) 0.5 K/uL (0.8-1.0); MONOCYTES % (AUTO) 9.5 % (1.7-9.3); NEUTROPHILS # (AUTO) 3.9 K/uL (1.8-7.7); NEUTROPHILS % (AUTO) 72.1 % (42.2-75.2); PLATELET COUNT (AUTO) 117 K/uL (140-450); RED BLOOD CELL COUNT(AUTO) 3.33 MIL/uL (4.20-6.10); RED CELL DISTRIBUTION WIDTH 16.3 % (11.6-13.7); WHITE BLOOD COUNT (AUTO) 5.4 K/uL (4.8-10.8)
[2022-10-24 08:00] VITALS: BP 125/64
[2022-10-24] MEDS: GABAPENTIN 100 MG CAP PO SCH ×4 (09:00→17:00)
--- NOTE | 2022-10-24 09:02 | NUR ---
PATIENT HAS BEEN SCREENED AND CATEGORIZED MODERATE NUTRITION RISK. PATIENT WILL BE SEEN WITHIN 3-5 DAYS OF ADMISSION. 10/23/22-10/29/22 REVIEWED BY HAILEE THOMPSON RD
[2022-10-24] MEDS: PANTOPRAZOLE 40 MG TABEC PO SCH (09:26)
[2022-10-24 12:00] VITALS: BP 141/66
--- NOTE | 2022-10-24 13:07 | NUR ---
DC PLANNING ASSESSMENT COMPLETE PLEASE REFER TO ASSESSMENT FOR ADDITIONAL DETAILS ALAN MORRISON DC PLAN IS FOR PT TO RETURN TO [facility] WHEN MEDICALLY STABLE. Addendum: 10/24/22 at 1309 by Paris FOREMAN Amended: Links added.
[2022-10-24] MEDS ORDERED: OXYM15SP72 NS (13:24)
[2022-10-24 16:00] VITALS: BP 139/73
--- NOTE | 2022-10-24 16:16 | NUR ---
PATIENT HAS DISCHARGE ORDER TO GO BACK TO [facility]. CHARGE NURSE JESSICA CALLED AND ASKED IF WE WERE ABLE TO SETUP TRANSPORTATION BECAUSE NURSES DIDN'T CALL TO [facility]. CALLED INSURANCE TO GET TRANSPORTATION AUTH BUT EVERYONE HAD LEFT FOR THE DAY. MESSAGED DIRECTOR MICHELINE TO SEE IF WE WOULD BE ABLE TO PAY FOR TRANSPORT BUT NO ANSWER. PATIENT WILL BE STAYING TONIGHT ANS FIRST THING TOMORROW PT WILL HAVE TRANSPORTATION SET UP.
--- NOTE | 2022-10-24 16:41 | NUR ---
PHYSICAL THERAPY CO-SIGN The Physical Therapy Progress Notes documented by Electro Optics Engineer have been reviewed. Reviewed/Co-Signed by: Lucila Brennan PT Documentation Done by:VEE MANZANARES PV INSTALLER TECH Addendum: 10/24/22 at 1641 by Lucila Brennan PT Amended: Links added.
--- NOTE | 2022-10-24 17:03 | NUR ---
PT STATES IS UNABLE TO TAKE GABAPENTIN DUE TO BEING ALLERGIC, NON ADMINISTERED ALL DAY. MD NOTIFIED.
--- NOTE | 2022-10-24 19:18 | NUR ---
PT HAS BEEN ENDORSED TO CLINICAL RESEARCH PHYSICIAN NURSE, DIALYSIS NURSE STILL AT BEDSIDE. UNABLE TO BE DISCHARGED DUE TO NO TRANSPORTATION BEING AVAILABLE THIS LATE. PT MADE AWARE.
--- NOTE | 2022-10-24 19:25 | NUR ---
RECEIVED PATIENT FROM AM NURSE FOR CONTINUITY OF CARE. PT IS STABLE
[2022-10-24 20:00] VITALS: BP 153/73
[2022-10-25] MEDS: ZOLPIDEM 5 MG TAB PO PRN (01:56)
[2022-10-25 04:00] VITALS: BP 136/74
[2022-10-25 06:52] LABS: ANION GAP 16.1 (8-16); CARBON DIOXIDE 30.3 mmol/L (21-32); POTASSIUM 4.4 mmol/L (3.5-5.1)
[2022-10-25 06:56] LABS: CREATININE 10.9 mg/dL (0.6-1.3)
--- NOTE | 2022-10-25 07:30 | NUR ---
RECEIVED REPORT FROM SNOW REMOVAL SUPERVISOR NURSE. PT CURRENTLY RESTING WITH CHEST RISING AND FALLING. NO ACUTE S/S OF DISTRESS, ALL SAFETY MEASURES IN PLACE. CALL LIGHT WITHIN REACH.
[2022-10-25 07:55] LABS: BASOPHILS # (AUTO) 0.1 K/uL (0.00-0.22); EOSINOPHILS % (AUTO) 0.5 % (0.0-4.0); HEMATOCRIT 30.4 % (36-52); HEMOGLOBIN 10.1 g/dL (12.0-18.0); LYMPHOCYTES # (AUTO) 1.2 K/uL (2.0-11.5); LYMPHOCYTES % (AUTO) 21.3 % (20.5-51.1); MEAN CORPUSCULAR HEMOGLOBIN 30 pg (27-31); MEAN CORPUSCULAR HGB CONC 33 g/dL (33-37); MEAN CORPUSCULAR VOLUME 88.8 fL (80-94); MONOCYTES # (AUTO) 0.5 K/uL (0.8-1.0); NEUTROPHILS # (AUTO) 3.8 K/uL (1.8-7.7); NEUTROPHILS % (AUTO) 68.2 % (42.2-75.2); PLATELET COUNT (AUTO) 130 K/uL (140-450); RED BLOOD CELL COUNT(AUTO) 3.42 MIL/uL (4.20-6.10); RED CELL DISTRIBUTION WIDTH 16.5 % (11.6-13.7); WHITE BLOOD COUNT (AUTO) 5.6 K/uL (4.8-10.8)
[2022-10-25 08:00] VITALS: BP 147/61
--- NOTE | 2022-10-25 08:55 | NUR ---
POLO FROM CASE MANAGEMENT CALLED STATING [facility] NEEDS TO BE CALLED TO BE GIVEN REPORT BEFORE THEY CAN SET UP DISCHARGE.
--- NOTE | 2022-10-25 09:10 | NUR ---
CALLED [facility], , SPOKE WITH JENNIFER. STATED THAT THEY ARE UNABLE TO HAVE PT BE TRANSPORTED TO THE DIALYSIS CENTER, STATED THE TRANSPORT HAS PICKED UP THE PATIENTS ALREADY. PT WILL NEED TO RECEIVE DIALYSIS AT THE HOSPITAL BEFORE TRANSPORT. STATED THE LATEST THEY CAN SET UP TRANSPORT IS 1400. CORWIN, DIALYSIS NURSE CONTACTED, REQUESTING AN ETA ON HER ARRIVAL SO TRANSPORT CAN BE SET UP.
[2022-10-25] MEDS: PANTOPRAZOLE 40 MG TABEC PO SCH (09:20)
--- NOTE | 2022-10-25 09:30 | NUR ---
CORWIN CALLED STATING SHE WILL NOT ARRIVE TILL 1200, TRANSPORT CAN NOT BE SET UP UNTIL AFTER 1600. CASE MANAGEMENT CALLED, VOICEMAIL LEFT.
--- NOTE | 2022-10-25 10:30 | NUR ---
CHARGE NURSE NOTIFIED REGARDING COMMUNICATION WITH [facility], AND CORWIN THE DIALYSIS NURSE. VIRTUAL RECRUITER CALLED POLO FLOTATION TENDER TO INFORM HER THE NEED FOR CASE MANAGEMENT TO SET UP TRANSPORT.
[2022-10-25 12:00] VITALS: BP 147/61
--- NOTE | 2022-10-25 12:02 | NUR ---
MUSTAPHA, PTS POINT OF CONTACT, SISTER, CALLED AND PROVIDED AN UPDATE REGARDING PTS PLAN FOR DISCHARGE AND PENDING CASE MANAGEMENT ARRANGEMENT WITH TRANSPORTATION. ALL QUESTIONS ANSWERED.
--- NOTE | 2022-10-25 14:18 | NUR ---
CALLED [facility] [phone] AND LEFT A MESSAGE TO GIVE REPORT FOR TRANSFER BACK. Addendum: 10/25/22 at 1424 by Agency 02 MARIXA RN CORRECT PHONE NUMBER IS [phone]. SPOKE WITH MILY AND GAVE REPORT. MILY HAD NO QUESTIONS OR CONCERNS.
--- NOTE | 2022-10-25 15:30 | NUR ---
10/25/22 RD INITIAL ASSESSMENT COMPLETED PLEASE REFER TO NUTRITION ASSESSMENT UNDER CARE ACTIVITY FOR ESTIMATED NUTRITIONAL NEEDS. 1. CONTINUE CARDIAC, RENAL DIET TOLERATED 2. MONITOR GI, PO INTAKE, NUTRITION RELATED LAB VALUES. 3. RD TO FOLLOW-UP 7 DAYS, LOW RISK REVIEWED BY HAILEE THOMPSON RD
--- NOTE | 2022-10-25 16:30 | NUR ---
[facility] SKY OBTAINED UBER FOR PT. CONTACTED [facility] AND LET [facility] KNOW THAT PT IS IN TRANSIT VIA UBER TO THEIR FACILITY. [facility] CONFIRMED NO QUESTIONS OR CONCERNS. PT IN STABLE CONDITION POST DIALYSIS. DIALYSIS CONFIRMED REMOVAL OF 2L.
== END 2022-10-25 16:35 | disposition home or self-care (01) | DRG 115 ==
LOC: MED 05:30 → MTU 09:26
PROVIDERS: ADMIT Student in an Organized Health Care Education/Training Program; ATTEND Student in an Organized Health Care Education/Training Program
PROC: 5A1D70Z Performance of Urinary Filtration, Intermittent, Less than 6 Hours Per Day (ICD-10-PCS; principal; 2022-10-23)
PROC: 5A1D70Z Performance of Urinary Filtration, Intermittent, Less than 6 Hours Per Day (ICD-10-PCS; 2022-10-24)
DX: R04.0 Epistaxis (principal); N17.0 Acute kidney failure with tubular necrosis; G93.41 Metabolic encephalopathy; N18.6 End stage renal disease; D63.1 Anemia in chronic kidney disease; E87.1 Hypo-osmolality and hyponatremia; E87.5 Hyperkalemia; E86.0 Dehydration; Z20.822 Contact with and (suspected) exposure to COVID-19; E11.22 Type 2 diabetes mellitus with diabetic chronic kidney disease; Z99.2 Dependence on renal dialysis
CPT/HCPCS: 36415; 71045; 80048; 80053; 82150; 83036; 83690; 83735; 83880; 84100; 84436; 84439; 84443; 84479; 85025; 85610; 85730; 87081; 93005; 96374; 97110; 97112; 97116; 97530; 99285; J2405; Q0092

== ENCOUNTER 2022-11-24 22:38 | Inpatient (IN) | payer OTHER ==
[~2022-11-24] VITALS: Ht 188 cm; Wt 93.4 kg
[~2022-11-24 22:38] MED LIST changes: +OXYM15SP72 NS; +[UNRECOGNIZED DRUG - CODE] PO
--- NOTE | 2022-11-24 22:42 | NUR ---
PT OFFLOADED ALS RUN TO BED 11.
[2022-11-24 22:45] VITALS: BP 197/97
--- NOTE | 2022-11-24 22:45 | NUR ---
68 YO M FELTON FROM [facility] WITH C/C OF SOB WHILE LYING DOWN, PER EMS PT SATING AT 98% ROOM AIR. PT ALSO REPORTS 7/10 LEFT FOOT PAIN D/T DM ULCER. BS 117. PER EMS 12-LEAD IS NORMAL. SHUNT IS ON LEFT UPPER ARM. HX:ESR NKA
--- NOTE | 2022-11-24 22:55 | NUR ---
PT FELT NEAUSEATED. NOTIFIED
[2022-11-24 23:01] LABS: HEMOGLOBIN 10.5 g/dL (12.0-18.0); MEAN CORPUSCULAR HEMOGLOBIN 30 pg (27-31); MEAN CORPUSCULAR HGB CONC 33 g/dL (33-37); MEAN CORPUSCULAR VOLUME 91.7 fL (80-94); PLATELET COUNT (AUTO) 91 K/uL (140-450); RED BLOOD CELL COUNT(AUTO) 3.49 MIL/uL (4.20-6.10); RED CELL DISTRIBUTION WIDTH 16.1 % (11.6-13.7); WHITE BLOOD COUNT (AUTO) 3.9 K/uL (4.8-10.8)
[2022-11-24 23:33] LABS: ALBUMIN 3.2 g/dL (3.4-5.0); ANION GAP 18.2 (8-16); CARBON DIOXIDE 27.1 mmol/L (21-32); POTASSIUM 5.3 mmol/L (3.5-5.1); TOTAL BILIRUBIN 0.8 mg/dL (0.0-1.0)
[2022-11-24 23:35] LABS: BASOPHILS % (MANUAL) 0 % (0-2); EOSINOPHILS % (MANUAL) 1 % (0-4); LYMPHOCYTES % (MANUAL) 33 % (20-46); MONOCYTES % (MANUAL) 8 % (5-12)
[2022-11-24 23:37] LABS: CREATININE 11.8 mg/dL (0.6-1.3)
[2022-11-25] MEDS ORDERED: MORPHINE SULFATE 4 MG/ML SYR IVP ONE (00:05)
[2022-11-25] MEDS ORDERED: INSULIN LISPRO SLIDING SCALE 100 UNITS/ML VIAL SUBQ PRN (01:10)
[2022-11-25] MEDS ORDERED: DEXTROSE 50% 50 ML SYR IVP PRN (01:25)
[2022-11-25 01:35] VITALS: BP 138/87
--- NOTE | 2022-11-25 01:35 | NUR ---
PATIENT ARRIVED TO UNIT VIA GURNEY. PATIENT WAS ABLE TO AMBULATE WITH CANE. PATIENT ALERT AND ORIENTED X 3. ABLE TO URINATE AND WENT TO RESTROOM WITH ASSISTANCE WITH CANE AND ADULT PROTECTIVE CASEWORKER. SKIN ASSESSMENT: PATIENT HAS NO OPEN WOUNDS BUT COMPLAINS OF PAIN TO LEFT PLANTAR. NOTED A PURPLE LIQUID FOR TREATMENT A PREVIOUS FACILITY. NURSING GAVE TYLENOL PRN FOR PAIN. ON S/S OF HYPER/HYPOGLYCEMIA. PATIENT DENIES CHEST PAIN AND NO COMPLAINS OF SOB. PATIENT STATED DIALYSIS WAS DONE 11/24/22 BUT UNAWARE OF THE OUTPUT. SIDE RAILS UP X 2 CALL LIGHT WITHIN REACH. PATIENT INFORMED NURSING THAT HIS EYE SIGHT IS IMPAIRED. NURSING WILL FREQUENT THIS ROOM FOR ANTICIPATED ASSISTANCE. MNURPH1
[2022-11-25] MEDS: ACETAMINOPHEN EXTRA STRENGTH 500 MG TAB PO PRN ×2 (02:00→10:23)
--- NOTE | 2022-11-25 03:54 | NUR ---
PATIENT NOTED WITH AN ELEVATED BLOOD PRESSURE BUT NO COMPLAINTS OF HEADACHE OR PAIN. ALL NEEDS MET. PATIENT KEPT CLEAN AND DRY. SIDE RAILS UP X 2. CALL LIGHT WITHIN REACH. MNURPH1
[2022-11-25 04:00] VITALS: BP 179/77
--- NOTE | 2022-11-25 05:19 | NUR ---
PATIENT NO NOTED S/S OF PAIN. PATIENT WANTS STRONGER MEDICATIONS FOR PAIN IF IT COME ABOUT, SLEEPING MEDICATION, AND NO MORE OF WHATEVER MEDICATION IS CAUSING HIS POTASSIUM TO GO UP. NURSING GAVE EDUCATION AND NOT MEDICATION IS THE CAUSE THAN HIS NEED FOR DIALYSIS. PATIENT UNDERSTOOD AND AGREE. MNURPH1
[2022-11-25 06:50] LABS: BASOPHILS % (AUTO) 0.9 % (0.0-2.0); EOSINOPHILS # (AUTO) 0.1 K/uL (0-0.4); EOSINOPHILS % (AUTO) 1.9 % (0.0-4.0); HEMATOCRIT 31.8 % (36-52); HEMOGLOBIN 10.5 g/dL (12.0-18.0); LYMPHOCYTES # (AUTO) 1.2 K/uL (2.0-11.5); LYMPHOCYTES % (AUTO) 30.6 % (20.5-51.1); MEAN CORPUSCULAR HEMOGLOBIN 30 pg (27-31); MEAN CORPUSCULAR HGB CONC 33 g/dL (33-37); MEAN CORPUSCULAR VOLUME 90.7 fL (80-94); MONOCYTES # (AUTO) 0.3 K/uL (0.8-1.0); MONOCYTES % (AUTO) 7.3 % (1.7-9.3); NEUTROPHILS # (AUTO) 2.3 K/uL (1.8-7.7); NEUTROPHILS % (AUTO) 59.3 % (42.2-75.2); PLATELET COUNT (AUTO) 87 K/uL (140-450); RED CELL DISTRIBUTION WIDTH 16.2 % (11.6-13.7); WHITE BLOOD COUNT (AUTO) 3.8 K/uL (4.8-10.8)
[2022-11-25] MEDS ORDERED: hydrALAZINE 10 MG TAB PO PRN (06:55)
[2022-11-25 07:03] LABS: ALBUMIN 3.2 g/dL (3.4-5.0); ANION GAP 19.3 (8-16); CARBON DIOXIDE 26.3 mmol/L (21-32); POTASSIUM 5.6 mmol/L (3.5-5.1); TOTAL BILIRUBIN 0.9 mg/dL (0.0-1.0)
[2022-11-25 07:15] LABS: CREATININE 11.8 mg/dL (0.6-1.3)
--- NOTE | 2022-11-25 07:22 | NUR ---
ENDORSED SHIFT REPORT TO ERNIE RN, PATIENT WAS STABLE DURING THE REPORT. MNURPH1
--- NOTE | 2022-11-25 07:22 | NUR ---
RECEIVED PATIENT FROM NURSE FOR CARE. PATIENT CARE PLAN REVIEWED. PATIENT CARE CONTINUED.
--- NOTE | 2022-11-25 07:25 | NUR ---
RECEIVED CRITICAL LAB REPORT. INFORMED.
[2022-11-25] MEDS ORDERED: BLOOD GLUCOSE MONITORING 1 DEV DEV FS SCH (07:30)
--- NOTE | 2022-11-25 09:00 | NUR ---
PATIENT SCEHDULED FOR DIALYSIS, DIALYSIS NURSE CONTACTED
--- NOTE | 2022-11-25 12:05 | NUR ---
PATIENT BEGAN DIALYSIS PROCEDURE.
[2022-11-25] MEDS ORDERED: HYDROcodone/APAP 5/325 MG 1 TAB TAB PO PRN (15:05)
[2022-11-25] MEDS ORDERED: ACETAMINOPHEN EXTRA STRENGTH 500 MG TAB PO PRN (15:05)
--- NOTE | 2022-11-25 15:30 | NUR ---
PATIENT COMPLETED DIALYSIS WITH 3 LITERS FLUID REMOVED.
--- NOTE | 2022-11-25 16:30 | NUR ---
PATIENT GETS READY TO GO HOME. PATIENT VERBALIZES FRUSTRATION THAT HE HAS TO STAY IN THE HOSPITAL AFTER DIALYSIS TREATMENT. PATIENT WAS TOLD OF OBSERVATION PLAN FOR CHF, HOWEVER PATIENT REFUSED TO STAY IN THE HOSPIAL ANY LONGER. PATIENT ASKS FOR AMA FORM. PATIENT EDUCATED ON AWAY WITHOUT MEDICAL LEAVE FORM.
--- NOTE | 2022-11-25 17:00 | NUR ---
PATIENT LEAVES HOSPITAL DESPITE BEING ADVISED TO STAY. AMA FORM SIGNED PRIOR TO PATIENT EXITING THE BUILDING. MD INFORMED.
[2022-11-25] MEDS ORDERED: TEMAZEPAM 15 MG CAP PO SCH (21:00)
[2022-11-26] MEDS ORDERED: lisinopriL 20 MG TAB PO SCH (09:00)
[2022-11-26] MEDS ORDERED: GABAPENTIN 100 MG CAP PO SCH (09:00)
== END 2022-11-25 17:16 | disposition left against medical advice (07) | DRG 425 ==
LOC: MED 22:38 → MTU 11-25 01:15
PROVIDERS: ADMIT Family Medicine; ATTEND Family Medicine
PROC: 5A1D70Z Performance of Urinary Filtration, Intermittent, Less than 6 Hours Per Day (ICD-10-PCS; principal; 2022-11-25)
DX: E87.5 Hyperkalemia (principal); I13.2 Hypertensive heart and chronic kidney disease with heart failure and with stage 5 chronic kidney disease, or end stage renal disease; N18.6 End stage renal disease; D69.6 Thrombocytopenia, unspecified; D63.1 Anemia in chronic kidney disease; E11.22 Type 2 diabetes mellitus with diabetic chronic kidney disease; E87.70 Fluid overload, unspecified; E78.5 Hyperlipidemia, unspecified; Z20.822 Contact with and (suspected) exposure to COVID-19; Z53.29 Procedure and treatment not carried out because of patient's decision for other reasons; I50.9 Heart failure, unspecified; Z79.899 Other long term (current) drug therapy; Z79.4 Long term (current) use of insulin; Z79.1 Long term (current) use of non-steroidal anti-inflammatories (NSAID)
CPT/HCPCS: 36415; 71045; 80053; 82948; 83880; 84484; 85025; 85730; 87081; 96374; 99285; J1644; J2270; Q0092

== ENCOUNTER 2023-01-10 02:31 | Inpatient (IN) | payer OTHER ==
[2023-01-10] VITALS (7 sets, daily range): BP systolic 141–156; BP diastolic 69–79; PULSE 59–86; RESP 16–19; TEMP 97.1–97.8; O2SAT 94–99
[~2023-01-10] VITALS: Ht 188 cm; Wt 95.3 kg
--- NOTE | 2023-01-10 02:39 | NUR ---
PT FELTON BLS. TAKEN TO BED 7
[2023-01-10 03:11] LABS: EOSINOPHILS # (AUTO) 0.1 K/uL (0-0.4); EOSINOPHILS % (AUTO) 1.8 % (0.0-4.0); HEMATOCRIT 32.5 % (36-52); HEMOGLOBIN 10.6 g/dL (12.0-18.0); LYMPHOCYTES # (AUTO) 1.1 K/uL (2.0-11.5); MEAN CORPUSCULAR HEMOGLOBIN 30 pg (27-31); MEAN CORPUSCULAR HGB CONC 33 g/dL (33-37); MEAN CORPUSCULAR VOLUME 91.2 fL (80-94); MONOCYTES # (AUTO) 0.3 K/uL (0.8-1.0); MONOCYTES % (AUTO) 7.4 % (1.7-9.3); NEUTROPHILS # (AUTO) 2.3 K/uL (1.8-7.7); NEUTROPHILS % (AUTO) 60.8 % (42.2-75.2); PLATELET COUNT (AUTO) 100 K/uL (140-450); RED BLOOD CELL COUNT(AUTO) 3.57 MIL/uL (4.20-6.10); RED CELL DISTRIBUTION WIDTH 15.3 % (11.6-13.7); WHITE BLOOD COUNT (AUTO) 3.8 K/uL (4.8-10.8)
--- NOTE | 2023-01-10 03:31 | NUR ---
PHLEB AT BEDSIDE FOR LAB DRAWS
[2023-01-10 03:37] LABS: ALBUMIN 3.5 g/dL (3.4-5.0); ANION GAP 29.1 (8-16); ASPARTATE AMINOTRANSFERASE 40 U/L (15-37); CARBON DIOXIDE 21.3 mmol/L (21-32); CHLORIDE 95 mmol/L (98-107); GFR ARICAN-AMERICAN 3 mL/min (>90); GLUCOSE 84 mg/dL (74-106); LIPASE 177 U/L (73-393); SODIUM SERUM 139 mmol/L (136-145); TOTAL BILIRUBIN 0.8 mg/dL (0.0-1.0)
[2023-01-10 03:38] LABS: CREATININE 19.3 mg/dL (0.6-1.3); POTASSIUM 6.4 mmol/L (3.5-5.1); UREA NITROGEN, BLOOD 138 mg/dL (7-18)
--- NOTE | 2023-01-10 04:21 | NUR ---
Dr. Anguiano examining patient.
--- NOTE | 2023-01-10 04:22 | NUR ---
67 Y/O M F[facility] from [facility] c/c of R sharp intermittent chest pain 9/10 radiating to R foot with swelling bilateral and ulcer on L bottom of foot. pt has NVD intermittent. pt has dialysis treatment MWF, but missed sunday appt. pt A&Ox4, ambulatory with cane. pmh- DM, HTN, Dialysis, end stage renal NKA meds-see med rec
[2023-01-10] MEDS ORDERED: ONDANSETRON 4 MG/2 ML VIAL IVP ONE (04:25)
[2023-01-10] MEDS ORDERED: MORPHINE SULFATE 4 MG/ML SYR IVP ONE ×2 (04:25→06:35)
[2023-01-10] MEDS ORDERED: INSULIN REGULAR, HUMAN 100 UNIT/ML VIAL IV ONE (04:25)
[2023-01-10] MEDS ORDERED: SODIUM ZIRCONIUM CYCLOSILICATE 10 GM POWD.PACK PO ONE (04:25)
[2023-01-10] MEDS ORDERED: DEXTROSE 50% 50 ML SYR IVP ONE (04:25)
[2023-01-10] MEDS ORDERED: CALCIUM GLUC 1 GM/50 mL NS BAG 50 ML IV ONE (04:25)
[2023-01-10] MEDS ORDERED: LORazepam 2 MG/ML VIAL IVP PRN (07:15)
[2023-01-10] MEDS ORDERED: ONDANSETRON 4 MG/2 ML VIAL IVP PRN (07:15)
[2023-01-10] MEDS ORDERED: ACETAMINOPHEN 325 MG TAB PO PRN (07:15)
--- NOTE | 2023-01-10 07:22 | NUR ---
67YO M RESTING IN BED UPRIGHT, AOX4, AWAITING FOR BED ASSIGNMENT TO TELEMETRY, PT ON AUTOMATIC GLOVE TURNER AND FORMER. NAD NOTED, SAFETY MAINTAINED, CALL LIGHT WITHIN REACH.
--- NOTE | 2023-01-10 07:23 | NUR ---
Pt report given to Wendy EDWARD. Transfer of care at this time.
--- NOTE | 2023-01-10 08:42 | NUR ---
PATIENT HAS BEEN SCREENED AND CATEGORIZED MODERATE NUTRITION RISK. PATIENT WILL BE SEEN WITHIN 3-5 DAYS OF ADMISSION. 01/13/23-01/15/[address] TH[address]
--- NOTE | 2023-01-10 08:42 | NUR ---
Patient will be admitted to care of [facility]. Admited to TELEMETRY. Will go to room 116A. Belongings list completed. Report to JARED CALVIN.
--- NOTE | 2023-01-10 08:53 | NUR ---
pt arrived in the unit, report is obtained prior the arrival, assessment is done pt is oriented to the new environment , call light in reach ,called for meal as pt said he is hungry . the gerard put up on the wall for no blood pressure on the left hand. pt says he can not see well from both eye but he is not legally blind, vs stable , no pain , admission strip EKG SR 65. [email or web address]
--- NOTE | 2023-01-10 12:21 | NUR ---
DC [age] YRS OLD MALE PATIENT WAS ADMITTED FROM [facility] (ASSISTED LIVING) WITH A DX OF ESRD. PATIENT HAS A HX OF DM, ESRD ON DIALYSIS M-- AND HTN. CXR SHOWED NORMAL. CONTINUED HOME MEDS, CONSULTED WITH CIGARETTE MACHINE OPERATOR ORDERED DIALYSIS. DC PLAN TO RETURN TO [facility] WHEN STABLE. CM TO FOLLOW
--- NOTE | 2023-01-10 13:25 | NUR ---
PATIENT SCHEDULE FOR HD TODAY , CONSENT SIGNED , NO COMPLAIN , STILL UNDER OBSERVE .
[2023-01-10] MEDS ORDERED: INSULIN LISPRO SLIDING SCALE 100 UNITS/ML VIAL SUBQ PRN (16:45)
[2023-01-10] MEDS ORDERED: DEXTROSE 50% 50 ML SYR IVP PRN (16:45)
--- NOTE | 2023-01-10 16:49 | NUR ---
PT BS IS 57, GIVEN BISMARK AND NENO , PT IN DIALYSIS. [id number]
[2023-01-10] MEDS: MORPHINE SULFATE 2 MG/ML SYR IVP PRN (17:51)
--- NOTE | 2023-01-10 17:56 | NUR ---
PT PULLED IV OUT ACCIDENTLY DURING DALASIS. PUT IN 22G NEW IV ON THE RIGHT FOREARM.[id number]
--- NOTE | 2023-01-10 19:10 | NUR ---
shift6 report given to night nurse yan rn , all her question answered .
--- NOTE | 2023-01-10 19:20 | NUR ---
RECEIVED PT FROM AM NURSE FOR CONTINUITY OF CARE. PT IS UNDERGOING DIALYSIS AT THIS TIME
[2023-01-10] MEDS: BLOOD GLUCOSE MONITORING 1 DEV DEV FS SCH (20:49)
--- NOTE | 2023-01-10 21:00 | NUR ---
PATIENTS BLOOD GLUCOSE IS DOWN TO 53, D50 IV PUSH GIVEN. GLUCOSE WENT UP TO 145. WILL CONTINUE TO MONITOR
[2023-01-11] VITALS (7 sets, daily range): BP systolic 135–149; BP diastolic 54–68; PULSE 65–79; RESP 18–20; TEMP 96.4–97.9; O2SAT 94–98
[2023-01-11] MEDS: MORPHINE SULFATE 2 MG/ML SYR IVP PRN ×2 (04:59→09:39)
[2023-01-11 06:42] LABS: BASOPHILS % (AUTO) 0.8 % (0.0-2.0); EOSINOPHILS % (AUTO) 1.2 % (0.0-4.0); HEMATOCRIT 33.2 % (36-52); HEMOGLOBIN 10.9 g/dL (12.0-18.0); LYMPHOCYTES # (AUTO) 0.4 K/uL (2.0-11.5); LYMPHOCYTES % (AUTO) 16.9 % (20.5-51.1); MEAN CORPUSCULAR HEMOGLOBIN 30 pg (27-31); MEAN CORPUSCULAR HGB CONC 33 g/dL (33-37); MEAN CORPUSCULAR VOLUME 91.6 fL (80-94); MONOCYTES # (AUTO) 0.1 K/uL (0.8-1.0); MONOCYTES % (AUTO) 5.3 % (1.7-9.3); NEUTROPHILS # (AUTO) 1.9 K/uL (1.8-7.7); NEUTROPHILS % (AUTO) 75.8 % (42.2-75.2); PLATELET COUNT (AUTO) 92 K/uL (140-450); RED BLOOD CELL COUNT(AUTO) 3.62 MIL/uL (4.20-6.10); RED CELL DISTRIBUTION WIDTH 15.1 % (11.6-13.7); WHITE BLOOD COUNT (AUTO) 2.5 K/uL (4.8-10.8)
[2023-01-11 06:53] LABS: ALBUMIN 3.3 g/dL (3.4-5.0); ANION GAP 19.6 (8-16); MAGNESIUM 2.4 mg/dL (1.8-2.4); PHOSPHORUS 6.8 mg/dL (2.5-4.9); POTASSIUM 5.6 mmol/L (3.5-5.1); TOTAL BILIRUBIN 0.8 mg/dL (0.0-1.0)
[2023-01-11 06:56] LABS: CREATININE 13.1 mg/dL (0.6-1.3)
[2023-01-11] MEDS: BLOOD GLUCOSE MONITORING 1 DEV DEV FS SCH ×4 (07:00→20:37)
--- NOTE | 2023-01-11 07:01 | NUR ---
NEW BUN 69 AND CREATININE 13 RESULTS WHICH IS TRENDING DOWN
--- NOTE | 2023-01-11 07:15 | NUR ---
RECEIVED BEDSIDE ENDORSEMENT FROM WEBSPHERE ADMINISTRATOR NURSE FOR CONTINUITY OF CARE. PT IS AWAKE, NO SIGN OF DISTRESS. CALL LIGHT WITHIN REACH.
--- NOTE | 2023-01-11 12:00 | NUR ---
PT REMAINED STABLE, DIDN'T LIKE LUNCH SO GAVE HIM A SANDWICH TO KEEP BLOOD SUGAR IN NORMAL PARAMETERS. CALL LIGHT WITHIN REACH.
--- NOTE | 2023-01-11 19:35 | NUR ---
GAVE BEDSIDE REPORT TO DRAINAGE DESIGN COORDINATOR NURSE FOR CONTINUITY OF CARE. PT IS AWAKE, NO SIGN OF DISTRESS. CALL LIGHT WITHIN REACH.
--- NOTE | 2023-01-11 19:36 | NUR ---
RECEIVED PT FROM AM NURSE FOR CONTINUITY OF CARE. PT IS STABLE
[2023-01-11] MEDS: SODIUM POLYSTYRENE 15 GM/60 ML UDBTL PO SCH (19:52)
[2023-01-12] VITALS (7 sets, daily range): BP systolic 134–178; BP diastolic 62–75; PULSE 65–88; RESP 18; TEMP 97.5–98; O2SAT 96–100
[2023-01-12] MEDS: SODIUM POLYSTYRENE 15 GM/60 ML UDBTL PO SCH (00:30)
[2023-01-12] MEDS: MORPHINE SULFATE 2 MG/ML SYR IVP PRN (00:35)
[2023-01-12] MEDS: BLOOD GLUCOSE MONITORING 1 DEV DEV FS SCH ×2 (06:50→11:30)
--- NOTE | 2023-01-12 07:15 | NUR ---
RECEIVED BEDSIDE REPORT FROM DATA CODER OPERATOR NURSE FOR CONTINUITY OF CARE. PT IS ASLEEP, AWAKEN BY NAME. NO SIGN OF DISTRESS. CALL LIGHT WITHIN REACH.
--- NOTE | 2023-01-12 14:17 | NUR ---
01/12/23 RD INITIAL ASSESSMENT COMPLETED PLEASE REFER TO NUTRITION ASSESSMENT UNDER CARE ACTIVITY FOR ESTIMATED NUTRITIONAL NEEDS. 1. CONTINUE RENAL AND CCHO 60 GRAM DIET TOLERATED 2. RD ENCOURAGES PATIENT TO CONTINUE TO FOLLOW RENAL DIET ONCE HE LEAVES THE HOSPITAL. 3. RD TO FOLLOW-UP 7 DAYS, LOW RISK MARYLIN ONEAL, RUSSELL
--- NOTE | 2023-01-12 15:00 | NUR ---
PT FINISHED DIALYSIS WITH NO COMPLICATION, 3L REMOVED. PT IS STABLE, NO SIGN OF DISTRESS.CALL LIGHT WITHIN REACH.
--- NOTE | 2023-01-12 16:00 | NUR ---
SPOKE WITH [facility] CM TO ARRANGE TRANSPORTATION. SENIOR [employer]UX [employer] ADMINISTRATOR TIME IS 1929. AUTH# [id number]
--- NOTE | 2023-01-12 17:00 | NUR ---
TRIED CALLING [facility] TO GIVE MY REPORT BUT THEY DIDN'T PRE CODER.
--- NOTE | 2023-01-12 18:15 | NUR ---
PT WAS DISCHARGED, ACCOMPANIED TOWARDS THE EXIT. [facility] PICKER FEEDER PROVIDED UBER FOR THE PT. I TRIED CALLING [employer] MULTIPLE TIMES BUT THEY DIDN'T ELECTRICAL PROSPECTING OBSERVER.PT WAS STABLE, STEADY GAIT. ID BAND AND IV REMOVED.
== END 2023-01-12 18:15 | disposition home or self-care (01) | DRG 425 ==
LOC: MED 02:31 → MTU 07:15
PROVIDERS: ADMIT Hospitalist; ATTEND Hospitalist
PROC: 5A1D70Z Performance of Urinary Filtration, Intermittent, Less than 6 Hours Per Day (ICD-10-PCS; principal; 2023-01-10)
DX: E87.70 Fluid overload, unspecified (principal); I12.0 Hypertensive chronic kidney disease with stage 5 chronic kidney disease or end stage renal disease; E44.1 Mild protein-calorie malnutrition; E11.22 Type 2 diabetes mellitus with diabetic chronic kidney disease; N18.6 End stage renal disease; D63.8 Anemia in other chronic diseases classified elsewhere; E87.5 Hyperkalemia; Z79.4 Long term (current) use of insulin; Z79.899 Other long term (current) drug therapy; Z91.158 Patient's noncompliance with renal dialysis for other reason; Z68.27 Body mass index [BMI] 27.0-27.9, adult
CPT/HCPCS: 36415; 71045; 80053; 82948; 83690; 83735; 84100; 84484; 85025; 87081; 93005; 96374; 96375; 96376; 99291; J0610; J1815; J2270; J2405; Q0092

== ENCOUNTER → 2023-02-13 | Emergency (ER) | payer OTHER ==
[~2023-02-13] VITALS: Ht 172.7 cm; Wt 79.8 kg
[~2023-02-13] MED LIST changes: -ACET-8905 PO; -ACET500P13 PO; +CYCL-711 PO; +CYCLOBENZAPRINE 10 MG TAB PO ONE; +HYDROcodone/APAP 5/325 MG 1 TAB TAB PO ONE; +LIDOCAINE 5% 1 EA PATCH TP ONE; -SILD100T PO
[2023-02-13 18:46] VITALS: BP 132/59; PULSE 83; RESP 17; TEMP 97.4; O2SAT 98
[2023-02-13 20:00] VITALS: BP 125/60; PULSE 84; RESP 17; TEMP 97.3
[2023-02-13 21:00] VITALS: O2SAT 98
== END | disposition home or self-care (01) ==
LOC: MED 18:30
DX: M25.775 Osteophyte, left foot (principal); M79.671 Pain in right foot; I12.0 Hypertensive chronic kidney disease with stage 5 chronic kidney disease or end stage renal disease; E11.22 Type 2 diabetes mellitus with diabetic chronic kidney disease; N18.6 End stage renal disease; Z99.2 Dependence on renal dialysis; Z79.4 Long term (current) use of insulin; Z79.899 Other long term (current) drug therapy
CPT/HCPCS: 73630; 99283

== ENCOUNTER 2023-02-15 14:43 | Inpatient (IN) | payer OTHER ==
[~2023-02-15] VITALS: Ht 188 cm; Wt 90.3 kg
[~2023-02-15 14:43] MED LIST changes: -CYCLOBENZAPRINE 10 MG TAB PO ONE; -HYDROcodone/APAP 5/325 MG 1 TAB TAB PO ONE; -LIDOCAINE 5% 1 EA PATCH TP ONE
[2023-02-15 15:22] VITALS: BP 154/71; PULSE 85; RESP 20; TEMP 98.6; O2SAT 96
[2023-02-15] MEDS ORDERED: MORPHINE SULFATE 4 MG/ML SYR IVP ONE (15:50)
[2023-02-15 16:25] LABS: BASOPHILS % (AUTO) 0.4 % (0.0-2.0); EOSINOPHILS % (AUTO) 0.3 % (0.0-4.0); HEMATOCRIT 35.1 % (36-52); HEMOGLOBIN 11.6 g/dL (12.0-18.0); LYMPHOCYTES # (AUTO) 1.1 K/uL (2.0-11.5); LYMPHOCYTES % (AUTO) 9.7 % (20.5-51.1); MEAN CORPUSCULAR HEMOGLOBIN 30 pg (27-31); MEAN CORPUSCULAR HGB CONC 33 g/dL (33-37); MEAN CORPUSCULAR VOLUME 90.1 fL (80-94); MONOCYTES # (AUTO) 0.7 K/uL (0.8-1.0); MONOCYTES % (AUTO) 5.9 % (1.7-9.3); NEUTROPHILS # (AUTO) 9.3 K/uL (1.8-7.7); NEUTROPHILS % (AUTO) 83.7 % (42.2-75.2); PLATELET COUNT (AUTO) 126 K/uL (140-450); WHITE BLOOD COUNT (AUTO) 11.2 K/uL (4.8-10.8)
[2023-02-15 16:34] LABS: ANION GAP 24.8 (8-16); CALCIUM 8.2 mg/dL (8.5-10.1); CARBON DIOXIDE 24.5 mmol/L (21-32); TOTAL PROTEIN, SERUM 9.8 g/dL (6.4-8.2)
[2023-02-15 16:50] LABS: POTASSIUM 7.3 mmol/L (3.5-5.1)
[2023-02-15 16:51] LABS: CREATININE 18.9 mg/dL (0.6-1.3)
[2023-02-15] MEDS ORDERED: DEXTROSE 50% 50 ML SYR IVP ONE (17:00)
[2023-02-15] MEDS ORDERED: INSULIN REGULAR, HUMAN 100 UNIT/ML VIAL IV ONE (17:00)
[2023-02-15] MEDS ORDERED: CALCIUM GLUC 1 GM/50 mL NS BAG 50 ML IV ONE (17:00)
[2023-02-15] MEDS ORDERED: SODIUM ZIRCONIUM CYCLOSILICATE 10 GM POWD.PACK PO ONE (22:20)
[2023-02-15] MEDS ORDERED: guaiFENesin DM 200/20 MG-10 ML 10 ML UDC PO PRN (22:30)
[2023-02-15] MEDS ORDERED: POTASSIUM CHLORIDE 10 MEQ TABER PO PRN (22:30)
[2023-02-15] MEDS ORDERED: DOCUSATE SODIUM 100 MG GELCAP PO PRN (22:30)
[2023-02-15] MEDS ORDERED: ACETAMINOPHEN 325 MG TAB PO PRN (22:30)
[2023-02-15] MEDS ORDERED: ONDANSETRON 4 MG/2 ML VIAL IM/IVP PRN (22:30)
[2023-02-15 23:05] VITALS: BP 132/69; PULSE 85; RESP 18; TEMP 99.2; O2SAT 96
[2023-02-15] MEDS ORDERED: SODIUM ZIRCONIUM CYCLOSILICATE 10 GM POWD.PACK ONE (23:31)
[2023-02-15] MEDS: HYDROcodone/APAP 7.5/325 MG 1 TAB PO PRN (23:38)
[2023-02-16] VITALS (7 sets, daily range): BP systolic 111–142; BP diastolic 67–76; PULSE 87–96; RESP 18–20; TEMP 96.3–97.5; O2SAT 95–100
[2023-02-16] MEDS ORDERED: VANCOMYCIN 1.25GM PREMIX 250 ML IV SCH (03:05)
[2023-02-16] MEDS ORDERED: VANCOMYCIN 500 MG VIAL ONE (03:13)
[2023-02-16] MEDS ORDERED: VANCOMYCIN 1,000 MG VIAL ONE (03:13)
[2023-02-16] MEDS ORDERED: PIPERACILLIN/TAZOBACTAM 3.375 GM VIAL IV ONE (04:57)
[2023-02-16] MEDS ORDERED: PIPERACILLIN/TAZOBACTAM 3.375 GM in DEXTROSE 5% 50 ML IV SCH (05:00)
[2023-02-16 06:21] LABS: BASOPHILS # (AUTO) 0.1 K/uL (0.00-0.22); BASOPHILS % (AUTO) 0.8 % (0.0-2.0); EOSINOPHILS # (AUTO) 0.1 K/uL (0-0.4); HEMATOCRIT 36.2 % (36-52); HEMOGLOBIN 12.1 g/dL (12.0-18.0); LYMPHOCYTES % (AUTO) 13.4 % (20.5-51.1); MEAN CORPUSCULAR HEMOGLOBIN 30 pg (27-31); MEAN CORPUSCULAR HGB CONC 33 g/dL (33-37); MEAN CORPUSCULAR VOLUME 89.7 fL (80-94); MONOCYTES # (AUTO) 0.4 K/uL (0.8-1.0); MONOCYTES % (AUTO) 4.6 % (1.7-9.3); NEUTROPHILS # (AUTO) 6.1 K/uL (1.8-7.7); NEUTROPHILS % (AUTO) 80.2 % (42.2-75.2); PLATELET COUNT (AUTO) 156 K/uL (140-450); RED BLOOD CELL COUNT(AUTO) 4.04 MIL/uL (4.20-6.10); RED CELL DISTRIBUTION WIDTH 14.9 % (11.6-13.7); WHITE BLOOD COUNT (AUTO) 7.6 K/uL (4.8-10.8)
[2023-02-16 06:31] LABS: ALBUMIN 2.9 g/dL (3.4-5.0); CALCIUM 8.9 mg/dL (8.5-10.1); CARBON DIOXIDE 26.2 mmol/L (21-32); POTASSIUM 4.2 mmol/L (3.5-5.1); TOTAL BILIRUBIN 1.4 mg/dL (0.0-1.0); TOTAL PROTEIN, SERUM 10.1 g/dL (6.4-8.2)
[2023-02-16] MEDS: HYDROcodone/APAP 7.5/325 MG 1 TAB PO PRN ×2 (07:18→21:04)
[2023-02-16] MEDS: PANTOPRAZOLE 40 MG TABEC PO SCH (09:57)
[2023-02-16] MEDS: VANCOMYCIN PER PHARMACY MC SCH (09:57)
[2023-02-16] MEDS: GAUZE TP SCH (12:39)
[2023-02-16] MEDS: PIPERACILLIN/TAZOBACTAM 2.25 GM in DEXTROSE 5% 50 ML IV SCH ×2 (12:39→20:38)
[2023-02-16] MEDS: MORPHINE SULFATE 2 MG/ML SYR IVP PRN (18:40)
[2023-02-16] MEDS: ZOLPIDEM 5 MG TAB PO PRN (20:47)
[2023-02-17 00:01] VITALS: PULSE 89
[2023-02-17] MEDS: HYDROcodone/APAP 7.5/325 MG 1 TAB PO PRN (01:09)
[2023-02-17 04:00] VITALS: PULSE 100
[2023-02-17] MEDS: PIPERACILLIN/TAZOBACTAM 2.25 GM in DEXTROSE 5% 50 ML IV SCH ×3 (04:27→20:43)
[2023-02-17 06:31] LABS: BASOPHILS # (AUTO) 0.1 K/uL (0.00-0.22); EOSINOPHILS # (AUTO) 0.1 K/uL (0-0.4); EOSINOPHILS % (AUTO) 1.1 % (0.0-4.0); HEMATOCRIT 38.3 % (36-52); HEMOGLOBIN 12.7 g/dL (12.0-18.0); LYMPHOCYTES # (AUTO) 1.2 K/uL (2.0-11.5); LYMPHOCYTES % (AUTO) 15.1 % (20.5-51.1); MEAN CORPUSCULAR HEMOGLOBIN 30 pg (27-31); MEAN CORPUSCULAR HGB CONC 33 g/dL (33-37); MEAN CORPUSCULAR VOLUME 90.4 fL (80-94); MONOCYTES # (AUTO) 0.5 K/uL (0.8-1.0); MONOCYTES % (AUTO) 5.7 % (1.7-9.3); NEUTROPHILS # (AUTO) 6.4 K/uL (1.8-7.7); NEUTROPHILS % (AUTO) 77.1 % (42.2-75.2); RED BLOOD CELL COUNT(AUTO) 4.24 MIL/uL (4.20-6.10); RED CELL DISTRIBUTION WIDTH 14.4 % (11.6-13.7); WHITE BLOOD COUNT (AUTO) 8.3 K/uL (4.8-10.8)
[2023-02-17 06:42] LABS: PLATELET COUNT (AUTO) 133 K/uL (140-450)
[2023-02-17 06:52] LABS: ANION GAP 25.9 (8-16); CALCIUM 8.8 mg/dL (8.5-10.1); POTASSIUM 4.9 mmol/L (3.5-5.1); TOTAL BILIRUBIN 1.3 mg/dL (0.0-1.0); TOTAL PROTEIN, SERUM 10.8 g/dL (6.4-8.2)
[2023-02-17 06:56] LABS: CREATININE 13.2 mg/dL (0.6-1.3)
[2023-02-17 08:00] VITALS: PULSE 85; PULSE 89; RESP 18; O2SAT 98
[2023-02-17] MEDS: PANTOPRAZOLE 40 MG TABEC PO SCH (08:17)
[2023-02-17] MEDS: VANCOMYCIN PER PHARMACY MC SCH (09:00)
[2023-02-17] MEDS ORDERED: INSULIN LISPRO SLIDING SCALE 100 UNITS/ML VIAL SUBQ PRN (09:35)
[2023-02-17] MEDS ORDERED: DEXTROSE 50% 50 ML SYR IVP PRN (10:45)
[2023-02-17] MEDS: BLOOD GLUCOSE MONITORING 1 DEV DEV FS SCH ×3 (11:30→20:42)
[2023-02-17 12:00] VITALS: BP 136/69; PULSE 73; PULSE 90; RESP 18; TEMP 97.5; O2SAT 97
[2023-02-17] MEDS: GAUZE TP SCH (13:00)
[2023-02-17 16:00] VITALS: BP 121/59; PULSE 100; PULSE 88; RESP 18; TEMP 97.3; O2SAT 99
[2023-02-17] MEDS: MORPHINE SULFATE 2 MG/ML SYR IVP PRN ×2 (17:08→23:22)
[2023-02-17 20:00] VITALS: BP 132/76; PULSE 83; PULSE 90; RESP 18; TEMP 97; O2SAT 95; O2SAT 99
[2023-02-18] VITALS (7 sets, daily range): BP systolic 115–147; BP diastolic 53–76; PULSE 82–90; RESP 18–20; TEMP 96.5–98.9; O2SAT 96–99
[2023-02-18] MEDS: PIPERACILLIN/TAZOBACTAM 2.25 GM in DEXTROSE 5% 50 ML IV SCH ×3 (05:00→20:43)
[2023-02-18 06:12] LABS: BASOPHILS # (AUTO) 0.1 K/uL (0.00-0.22); EOSINOPHILS # (AUTO) 0.1 K/uL (0-0.4); EOSINOPHILS % (AUTO) 2.1 % (0.0-4.0); HEMATOCRIT 35.4 % (36-52); HEMOGLOBIN 11.9 g/dL (12.0-18.0); LYMPHOCYTES % (AUTO) 15.4 % (20.5-51.1); MEAN CORPUSCULAR HEMOGLOBIN 30 pg (27-31); MEAN CORPUSCULAR HGB CONC 34 g/dL (33-37); MEAN CORPUSCULAR VOLUME 89.2 fL (80-94); MONOCYTES # (AUTO) 0.6 K/uL (0.8-1.0); MONOCYTES % (AUTO) 9.3 % (1.7-9.3); NEUTROPHILS # (AUTO) 4.8 K/uL (1.8-7.7); NEUTROPHILS % (AUTO) 72.2 % (42.2-75.2); PLATELET COUNT (AUTO) 159 K/uL (140-450); RED BLOOD CELL COUNT(AUTO) 3.97 MIL/uL (4.20-6.10); RED CELL DISTRIBUTION WIDTH 14.4 % (11.6-13.7); WHITE BLOOD COUNT (AUTO) 6.7 K/uL (4.8-10.8)
[2023-02-18 06:38] LABS: ALBUMIN 2.4 g/dL (3.4-5.0); ANION GAP 24.2 (8-16); CALCIUM 8.2 mg/dL (8.5-10.1); CARBON DIOXIDE 20.9 mmol/L (21-32); POTASSIUM 5.1 mmol/L (3.5-5.1); TOTAL BILIRUBIN 1.2 mg/dL (0.0-1.0)
[2023-02-18 06:43] LABS: CREATININE 15.2 mg/dL (0.6-1.3)
[2023-02-18] MEDS: BLOOD GLUCOSE MONITORING 1 DEV DEV FS SCH ×4 (06:47→20:42)
[2023-02-18] MEDS: PANTOPRAZOLE 40 MG TABEC PO SCH (08:25)
[2023-02-18] MEDS: VANCOMYCIN PER PHARMACY MC SCH (09:00)
[2023-02-18] MEDS ORDERED: ONDANSETRON 4 MG/2 ML VIAL ONE (10:00)
[2023-02-18] MEDS ORDERED: PROPOFOL 200 MG/20 ML VIAL IV ONE (10:00)
[2023-02-18] MEDS: INSULIN LISPRO SLIDING SCALE 100 UNITS/ML VIAL SUBQ PRN (12:03)
[2023-02-18] MEDS: MORPHINE SULFATE 2 MG/ML SYR IVP PRN ×2 (12:13→21:14)
[2023-02-18] MEDS: GAUZE TP SCH (13:00)
[2023-02-19] VITALS: BP 148/70; PULSE 79; PULSE 84; RESP 17; TEMP 97.3; O2SAT 98
[2023-02-19 04:00] VITALS: BP 134/65; PULSE 85; PULSE 86; RESP 17; TEMP 97.3; O2SAT 96
[2023-02-19] MEDS: PIPERACILLIN/TAZOBACTAM 2.25 GM in DEXTROSE 5% 50 ML IV SCH ×3 (05:42→21:34)
[2023-02-19] MEDS: BLOOD GLUCOSE MONITORING 1 DEV DEV FS SCH ×5 (06:51→20:49)
[2023-02-19 06:52] LABS: BASOPHILS % (AUTO) 0.7 % (0.0-2.0); EOSINOPHILS # (AUTO) 0.1 K/uL (0-0.4); EOSINOPHILS % (AUTO) 2.3 % (0.0-4.0); HEMATOCRIT 34.9 % (36-52); HEMOGLOBIN 11.7 g/dL (12.0-18.0); LYMPHOCYTES # (AUTO) 0.9 K/uL (2.0-11.5); LYMPHOCYTES % (AUTO) 14.9 % (20.5-51.1); MEAN CORPUSCULAR HEMOGLOBIN 30 pg (27-31); MEAN CORPUSCULAR HGB CONC 34 g/dL (33-37); MEAN CORPUSCULAR VOLUME 88.6 fL (80-94); MONOCYTES # (AUTO) 0.7 K/uL (0.8-1.0); MONOCYTES % (AUTO) 10.9 % (1.7-9.3); NEUTROPHILS # (AUTO) 4.5 K/uL (1.8-7.7); NEUTROPHILS % (AUTO) 71.2 % (42.2-75.2); PLATELET COUNT (AUTO) 157 K/uL (140-450); RED BLOOD CELL COUNT(AUTO) 3.94 MIL/uL (4.20-6.10); RED CELL DISTRIBUTION WIDTH 14.2 % (11.6-13.7); WHITE BLOOD COUNT (AUTO) 6.3 K/uL (4.8-10.8)
[2023-02-19 07:27] LABS: ALBUMIN 2.3 g/dL (3.4-5.0); ANION GAP 24.2 (8-16); CALCIUM 8.1 mg/dL (8.5-10.1); CARBON DIOXIDE 20.9 mmol/L (21-32); POTASSIUM 5.1 mmol/L (3.5-5.1); TOTAL BILIRUBIN 1.1 mg/dL (0.0-1.0); TOTAL PROTEIN, SERUM 8.6 g/dL (6.4-8.2)
[2023-02-19 08:00] VITALS: BP 131/67; PULSE 77; PULSE 81; RESP 20; TEMP 96.7; O2SAT 100
[2023-02-19] MEDS ORDERED: BUPIVACAINE-MPF 0.5% 30 ML VIAL INJ ONE (08:54)
[2023-02-19] MEDS: VANCOMYCIN PER PHARMACY MC SCH (09:00)
[2023-02-19 09:07] LABS: INR 1.08 (0.8-1.2); PARTIAL THROMBOPLASTIN TIME 33.2 secs (22-35.6); PROTHROMBIN TIME 11.3 secs (10.8-13.4)
[2023-02-19] MEDS: PANTOPRAZOLE 40 MG TABEC PO SCH (09:07)
[2023-02-19] MEDS ORDERED: HYDROGEN PEROXIDE 3% 240 ML BTL TP ONE (10:01)
[2023-02-19] MEDS ORDERED: PROPOFOL 200 MG/20 ML VIAL IV ONE ×2 (11:15)
[2023-02-19] MEDS ORDERED: ONDANSETRON 4 MG/2 ML VIAL ONE (11:15)
[2023-02-19] MEDS ORDERED: METOCLOPRAMIDE 10 MG/2 ML INJ VIAL IVP PRN (11:22)
[2023-02-19] MEDS ORDERED: LABETALOL 20 MG/4 ML VIAL IVP PRN (11:23)
[2023-02-19] MEDS ORDERED: hydrALAZINE 20 MG/ML VIAL IVP PRN (11:27)
[2023-02-19] MEDS ORDERED: HYDROmorphone 1 MG/ML AMP IVP PRN (11:30)
[2023-02-19 12:00] VITALS: BP 123/61; PULSE 76; PULSE 81; RESP 18; TEMP 97.7; O2SAT 100
[2023-02-19] MEDS: GAUZE TP SCH (13:00)
[2023-02-19 16:00] VITALS: BP 112/58; PULSE 93; PULSE 98; RESP 18; TEMP 98; O2SAT 98
[2023-02-19 20:00] VITALS: PULSE 102; PULSE 77; RESP 18; O2SAT 100
[2023-02-19] MEDS ORDERED: VANCOMYCIN 1,000 MG in DEXTROSE 5% 250 ML IV SCH (20:00)
[2023-02-19] MEDS: ZOLPIDEM 5 MG TAB PO PRN (23:03)
[2023-02-20] VITALS: BP 105/82; PULSE 97; PULSE 98; RESP 18; TEMP 98.1; O2SAT 96
[2023-02-20] MEDS: HYDROcodone/APAP 7.5/325 MG 1 TAB PO PRN (02:47)
[2023-02-20 04:00] VITALS: BP 112/60; PULSE 93; RESP 18; TEMP 98; O2SAT 99
[2023-02-20] MEDS: PIPERACILLIN/TAZOBACTAM 2.25 GM in DEXTROSE 5% 50 ML IV SCH ×3 (04:59→20:46)
[2023-02-20] MEDS: BLOOD GLUCOSE MONITORING 1 DEV DEV FS SCH ×4 (06:17→20:38)
[2023-02-20] MEDS: INSULIN LISPRO SLIDING SCALE 100 UNITS/ML VIAL SUBQ PRN ×3 (06:23→16:37)
[2023-02-20 06:46] LABS: ALBUMIN 2.3 g/dL (3.4-5.0); CALCIUM 8.4 mg/dL (8.5-10.1); CARBON DIOXIDE 23.9 mmol/L (21-32); POTASSIUM 4.9 mmol/L (3.5-5.1)
[2023-02-20 06:50] LABS: BASOPHILS % (AUTO) 0.6 % (0.0-2.0); EOSINOPHILS % (AUTO) 0.3 % (0.0-4.0); HEMATOCRIT 33.3 % (36-52); HEMOGLOBIN 11.2 g/dL (12.0-18.0); LYMPHOCYTES # (AUTO) 0.8 K/uL (2.0-11.5); LYMPHOCYTES % (AUTO) 10.4 % (20.5-51.1); MEAN CORPUSCULAR HEMOGLOBIN 30 pg (27-31); MEAN CORPUSCULAR HGB CONC 34 g/dL (33-37); MEAN CORPUSCULAR VOLUME 88.1 fL (80-94); MONOCYTES # (AUTO) 0.7 K/uL (0.8-1.0); MONOCYTES % (AUTO) 8.1 % (1.7-9.3); NEUTROPHILS # (AUTO) 6.6 K/uL (1.8-7.7); NEUTROPHILS % (AUTO) 80.6 % (42.2-75.2); PLATELET COUNT (AUTO) 191 K/uL (140-450); RED BLOOD CELL COUNT(AUTO) 3.78 MIL/uL (4.20-6.10); WHITE BLOOD COUNT (AUTO) 8.2 K/uL (4.8-10.8)
[2023-02-20 07:31] LABS: CREATININE 11.6 mg/dL (0.6-1.3)
[2023-02-20 08:00] VITALS: BP 117/52; PULSE 84; RESP 18; TEMP 97.4; O2SAT 100
[2023-02-20] MEDS: PANTOPRAZOLE 40 MG TABEC PO SCH (08:59)
[2023-02-20 12:00] VITALS: BP 98/56; PULSE 85; RESP 18; TEMP 97.1; O2SAT 98
[2023-02-20] MEDS: GAUZE TP SCH (13:06)
[2023-02-20 16:00] VITALS: BP 123/62; PULSE 84; RESP 18; TEMP 97.4; O2SAT 100
[2023-02-20 20:00] VITALS: BP 141/66; PULSE 93; RESP 18; TEMP 97.1; O2SAT 100
[2023-02-20] MEDS: MORPHINE SULFATE 2 MG/ML SYR IVP PRN (20:26)
[2023-02-21 04:00] VITALS: BP_SYST 134; BP_SYST 140; BP_DIAS 63; BP_DIAS 65; PULSE 82; PULSE 87; RESP 19; RESP 20; TEMP 96.8; TEMP 96.9; O2SAT 100; O2SAT 99
[2023-02-21] MEDS: PIPERACILLIN/TAZOBACTAM 2.25 GM in DEXTROSE 5% 50 ML IV SCH ×3 (04:39→20:45)
[2023-02-21] MEDS: MORPHINE SULFATE 2 MG/ML SYR IVP PRN ×2 (05:07→16:51)
[2023-02-21] MEDS: BLOOD GLUCOSE MONITORING 1 DEV DEV FS SCH ×4 (06:38→21:14)
[2023-02-21 07:23] LABS: ALBUMIN 2.2 g/dL (3.4-5.0); ANION GAP 16.5 (8-16); CALCIUM 8.6 mg/dL (8.5-10.1); CARBON DIOXIDE 26.9 mmol/L (21-32); POTASSIUM 4.4 mmol/L (3.5-5.1); TOTAL BILIRUBIN 0.9 mg/dL (0.0-1.0)
[2023-02-21 07:26] LABS: BASOPHILS # (AUTO) 0.1 K/uL (0.00-0.22); BASOPHILS % (AUTO) 0.9 % (0.0-2.0); EOSINOPHILS # (AUTO) 0.1 K/uL (0-0.4); EOSINOPHILS % (AUTO) 2.1 % (0.0-4.0); HEMATOCRIT 34.9 % (36-52); HEMOGLOBIN 11.8 g/dL (12.0-18.0); LYMPHOCYTES # (AUTO) 1.2 K/uL (2.0-11.5); LYMPHOCYTES % (AUTO) 17.9 % (20.5-51.1); MEAN CORPUSCULAR HEMOGLOBIN 30 pg (27-31); MEAN CORPUSCULAR HGB CONC 34 g/dL (33-37); MEAN CORPUSCULAR VOLUME 88.4 fL (80-94); MONOCYTES # (AUTO) 0.9 K/uL (0.8-1.0); MONOCYTES % (AUTO) 12.8 % (1.7-9.3); NEUTROPHILS # (AUTO) 4.6 K/uL (1.8-7.7); NEUTROPHILS % (AUTO) 66.3 % (42.2-75.2); PLATELET COUNT (AUTO) 186 K/uL (140-450); RED BLOOD CELL COUNT(AUTO) 3.95 MIL/uL (4.20-6.10); RED CELL DISTRIBUTION WIDTH 14.3 % (11.6-13.7); WHITE BLOOD COUNT (AUTO) 6.9 K/uL (4.8-10.8)
[2023-02-21 07:27] LABS: CREATININE 13.5 mg/dL (0.6-1.3)
[2023-02-21 08:00] VITALS: BP 113/59; PULSE 76; RESP 18; TEMP 96.9; O2SAT 100
[2023-02-21] MEDS: VANCOMYCIN PER PHARMACY MC SCH (09:00)
[2023-02-21] MEDS: PANTOPRAZOLE 40 MG TABEC PO SCH (10:07)
[2023-02-21] MEDS: HYDROcodone/APAP 7.5/325 MG 1 TAB PO PRN ×2 (10:07→20:57)
[2023-02-21] MEDS: GAUZE TP SCH (12:17)
[2023-02-21 16:00] VITALS: BP 112/64; PULSE 88; RESP 18; TEMP 97.1; O2SAT 97
[2023-02-21 20:00] VITALS: BP 122/63; PULSE 94; RESP 20; TEMP 97.7; O2SAT 96
[2023-02-21] MEDS ORDERED: VANCOMYCIN 1,000 MG in DEXTROSE 5% 250 ML IV SCH (20:00)
[2023-02-22] MEDS: ZOLPIDEM 5 MG TAB PO PRN ×2 (00:24→22:52)
[2023-02-22 04:00] VITALS: BP 130/66; PULSE 96; RESP 20; TEMP 98.7; O2SAT 99
[2023-02-22] MEDS: PIPERACILLIN/TAZOBACTAM 2.25 GM in DEXTROSE 5% 50 ML IV SCH ×3 (04:41→20:25)
[2023-02-22 06:41] LABS: BASOPHILS # (AUTO) 0.1 K/uL (0.00-0.22); BASOPHILS % (AUTO) 1.8 % (0.0-2.0); EOSINOPHILS # (AUTO) 0.2 K/uL (0-0.4); HEMATOCRIT 34.4 % (36-52); HEMOGLOBIN 11.6 g/dL (12.0-18.0); LYMPHOCYTES # (AUTO) 1.3 K/uL (2.0-11.5); LYMPHOCYTES % (AUTO) 23.7 % (20.5-51.1); MEAN CORPUSCULAR HEMOGLOBIN 30 pg (27-31); MEAN CORPUSCULAR HGB CONC 34 g/dL (33-37); MONOCYTES # (AUTO) 0.6 K/uL (0.8-1.0); MONOCYTES % (AUTO) 10.9 % (1.7-9.3); NEUTROPHILS # (AUTO) 3.4 K/uL (1.8-7.7); NEUTROPHILS % (AUTO) 60.6 % (42.2-75.2); PLATELET COUNT (AUTO) 239 K/uL (140-450); RED BLOOD CELL COUNT(AUTO) 3.91 MIL/uL (4.20-6.10); RED CELL DISTRIBUTION WIDTH 14.2 % (11.6-13.7); WHITE BLOOD COUNT (AUTO) 5.6 K/uL (4.8-10.8)
[2023-02-22 06:51] LABS: ALBUMIN 2.4 g/dL (3.4-5.0); CARBON DIOXIDE 22.1 mmol/L (21-32); POTASSIUM 4.1 mmol/L (3.5-5.1); TOTAL PROTEIN, SERUM 9.3 g/dL (6.4-8.2)
[2023-02-22 06:52] LABS: CREATININE 9.6 mg/dL (0.6-1.3)
[2023-02-22] MEDS: BLOOD GLUCOSE MONITORING 1 DEV DEV FS SCH ×4 (06:57→20:24)
[2023-02-22 08:00] VITALS: BP 129/66; PULSE 89; RESP 16; TEMP 97.8; O2SAT 99
[2023-02-22] MEDS: VANCOMYCIN PER PHARMACY MC SCH (09:00)
[2023-02-22] MEDS: PANTOPRAZOLE 40 MG TABEC PO SCH (10:45)
[2023-02-22] MEDS: GAUZE TP SCH (13:00)
[2023-02-22] MEDS: INSULIN LISPRO SLIDING SCALE 100 UNITS/ML VIAL SUBQ PRN (18:20)
[2023-02-22 20:00] VITALS: BP 133/67; PULSE 83; RESP 18; TEMP 97.4; O2SAT 100
[2023-02-22] MEDS: MORPHINE SULFATE 2 MG/ML SYR IVP PRN (21:18)
[2023-02-23 04:00] VITALS: BP 123/64; PULSE 83; RESP 18; TEMP 97.6; O2SAT 100
[2023-02-23] MEDS: PIPERACILLIN/TAZOBACTAM 2.25 GM in DEXTROSE 5% 50 ML IV SCH ×3 (04:03→20:01)
[2023-02-23 06:02] LABS: ANION GAP 20.2 (8-16); CALCIUM 8.5 mg/dL (8.5-10.1); CARBON DIOXIDE 21.9 mmol/L (21-32); POTASSIUM 4.1 mmol/L (3.5-5.1)
[2023-02-23 06:18] LABS: CREATININE 11.9 mg/dL (0.6-1.3)
[2023-02-23] MEDS: BLOOD GLUCOSE MONITORING 1 DEV DEV FS SCH ×4 (06:52→20:19)
[2023-02-23] MEDS: INSULIN LISPRO SLIDING SCALE 100 UNITS/ML VIAL SUBQ PRN ×3 (06:54→20:22)
[2023-02-23 08:00] VITALS: PULSE 78; RESP 17; O2SAT 99
[2023-02-23] MEDS: VANCOMYCIN PER PHARMACY MC SCH (09:00)
[2023-02-23] MEDS: PANTOPRAZOLE 40 MG TABEC PO SCH (09:28)
[2023-02-23] MEDS ORDERED: GAUZE TP SCH (13:00)
[2023-02-23] MEDS: MORPHINE SULFATE 2 MG/ML SYR IVP PRN (18:53)
[2023-02-23 20:00] VITALS: BP 98/58; PULSE 87; RESP 17; TEMP 97.2; O2SAT 99
[2023-02-23] MEDS ORDERED: VANCOMYCIN 500 MG in DEXTROSE 5% 100 ML IV SCH (21:00)
[2023-02-24 04:00] VITALS: BP 113/61; PULSE 82; RESP 17; TEMP 97; O2SAT 98
[2023-02-24] MEDS: PIPERACILLIN/TAZOBACTAM 2.25 GM in DEXTROSE 5% 50 ML IV SCH (04:16)
[2023-02-24 06:38] LABS: ANION GAP 22.1 (8-16); CALCIUM 9.2 mg/dL (8.5-10.1); CARBON DIOXIDE 22.7 mmol/L (21-32); POTASSIUM 3.8 mmol/L (3.5-5.1)
[2023-02-24] MEDS: BLOOD GLUCOSE MONITORING 1 DEV DEV FS SCH (07:03)
[2023-02-24] MEDS: VANCOMYCIN PER PHARMACY MC SCH (09:40)
[2023-02-24] MEDS: PANTOPRAZOLE 40 MG TABEC PO SCH (09:40)
== END 2023-02-24 12:16 | disposition home health service (06) | DRG 710 ==
LOC: MED 14:43 → MTU 22:29
PROVIDERS: ADMIT Hospitalist; ATTEND Hospitalist
PROC: 5A1D70Z Performance of Urinary Filtration, Intermittent, Less than 6 Hours Per Day (ICD-10-PCS; 2023-02-15)
PROC: 5A1D70Z Performance of Urinary Filtration, Intermittent, Less than 6 Hours Per Day (ICD-10-PCS; 2023-02-18)
PROC: 0QBN0ZX Excision of Right Metatarsal, Open Approach, Diagnostic (ICD-10-PCS; 2023-02-19)
PROC: 0Y9M0ZZ Drainage of Right Foot, Open Approach (ICD-10-PCS; 2023-02-19)
PROC: 0Y6M0ZF Detachment at Right Foot, Partial 5th Ray, Open Approach (ICD-10-PCS; principal; 2023-02-19 10:00)
PROC: 5A1D70Z Performance of Urinary Filtration, Intermittent, Less than 6 Hours Per Day (ICD-10-PCS; 2023-02-20)
PROC: 5A1D70Z Performance of Urinary Filtration, Intermittent, Less than 6 Hours Per Day (ICD-10-PCS; 2023-02-22)
DX: A41.9 Sepsis, unspecified organism (principal); I12.0 Hypertensive chronic kidney disease with stage 5 chronic kidney disease or end stage renal disease; E44.0 Moderate protein-calorie malnutrition; E87.1 Hypo-osmolality and hyponatremia; D63.1 Anemia in chronic kidney disease; E11.22 Type 2 diabetes mellitus with diabetic chronic kidney disease; L03.115 Cellulitis of right lower limb; E11.69 Type 2 diabetes mellitus with other specified complication; M86.8X7 Other osteomyelitis, ankle and foot; N18.6 End stage renal disease; R65.10 Systemic inflammatory response syndrome (SIRS) of non-infectious origin without acute organ dysfunction; E11.621 Type 2 diabetes mellitus with foot ulcer; E11.51 Type 2 diabetes mellitus with diabetic peripheral angiopathy without gangrene; E87.8 Other disorders of electrolyte and fluid balance, not elsewhere classified; L97.519 Non-pressure chronic ulcer of other part of right foot with unspecified severity; E87.5 Hyperkalemia; E78.5 Hyperlipidemia, unspecified; S90.121A Contusion of right lesser toe(s) without damage to nail, initial encounter; X58.XXXA Exposure to other specified factors, initial encounter; Y93.89 Activity, other specified; Y92.89 Other specified places as the place of occurrence of the external cause; Y99.8 Other external cause status; Z99.2 Dependence on renal dialysis; Z68.25 Body mass index [BMI] 25.0-25.9, adult; Z79.899 Other long term (current) drug therapy
CPT/HCPCS: 36415; 73630; 80048; 80053; 80202; 82948; 85025; 85610; 85651; 85730; 86140; 87040; 87070; 87075; 87081; 87186; 87205; 88305; 88311; 93005; 93926; 96374; 96375; 99285; J0610; J1644; J1815; J2270; J2405; J2543; J2704; J3370; J3490; J7030; J7060; Q0092; Q9967

== ENCOUNTER 2024-01-31 18:20 | Inpatient (IN) | payer OTHER, MEDICAID ==
[~2024-01-31] VITALS: Ht 188 cm; Wt 76.7 kg
[~2024-01-31 18:20] MED LIST changes: -INSU100I47 SQ; +INSU100I74 SQ; -LISI-487 PO; +LISI-953 PO; -OFLOS OP; -OXYM15SP72 NS; -[UNRECOGNIZED DRUG - CODE] PO
[2024-01-31 18:30] VITALS: BP 187/78; PULSE 110; RESP 20; TEMP 98.1; O2SAT 99
[2024-01-31 19:51] LABS: BASOPHILS % (AUTO) 0.2 % (0.0-2.0); HEMATOCRIT 39.2 % (36-52); HEMOGLOBIN 12.5 g/dL (12.0-18.0); LYMPHOCYTES # (AUTO) 0.5 K/uL (2.0-11.5); LYMPHOCYTES % (AUTO) 4.2 % (20.5-51.1); MEAN CORPUSCULAR HEMOGLOBIN 28 pg (27-31); MEAN CORPUSCULAR HGB CONC 32 g/dL (33-37); MEAN CORPUSCULAR VOLUME 86.9 fL (80-94); MONOCYTES # (AUTO) 0.5 K/uL (0.8-1.0); NEUTROPHILS % (AUTO) 91.6 % (42.2-75.2); PLATELET COUNT (AUTO) 133 K/uL (140-450); RED BLOOD CELL COUNT(AUTO) 4.51 MIL/uL (4.20-6.10); RED CELL DISTRIBUTION WIDTH 14.6 % (11.6-13.7)
[2024-01-31 20:03] LABS: CALCIUM 8.8 mg/dL (8.5-10.1); CARBON DIOXIDE 22.5 mmol/L (21-32); POTASSIUM 5.5 mmol/L (3.5-5.1)
[2024-01-31 20:07] LABS: ALBUMIN 2.9 g/dL (3.4-5.0); BILIRUBIN,DIRECT 0.1 mg/dL (0.0-0.3); TOTAL BILIRUBIN 0.6 mg/dL (0.0-1.0); TOTAL PROTEIN, SERUM 9.2 g/dL (6.4-8.2)
[2024-01-31] MEDS ORDERED: MORPHINE SULFATE 4 MG/ML SYR ONE (20:07)
[2024-01-31 20:29] LABS: CREATININE 16.3 mg/dL (0.6-1.3)
[2024-01-31] MEDS: ONDANSETRON 4 MG/2 ML VIAL IVP ONE (20:42)
[2024-01-31] MEDS: NACL 0.9% 1,000 ML IV ONE (20:43)
[2024-01-31] MEDS: MORPHINE SULFATE 4 MG/ML SYR IVP ONE (20:43)
[2024-02-01] MEDS: MAG SULF 2000 MG/WATER PREMIX 50 ML IV ONE (01:06)
[2024-02-01] MEDS ORDERED: cefTRIAXone 1,000 MG VIAL ONE (01:08)
[2024-02-01] MEDS ORDERED: ACETAMINOPHEN 325 MG TAB PO PRN (03:10)
[2024-02-01] MEDS: HYDROcodone/APAP 5/325 MG 1 TAB TAB PO PRN (04:21)
[2024-02-01] MEDS ORDERED: PIPERACILLIN/TAZOBACTAM 3.375 GM VIAL IV ONE (06:20)
[2024-02-01] MEDS: PIPERACILLIN/TAZOBACTAM 3.375 GM in DEXTROSE 5% 50 ML IV SCH (06:22)
[2024-02-01 09:00] VITALS: PULSE 79; RESP 21; O2SAT 98
[2024-02-01] MEDS ORDERED: ENOXAPARIN 40 MG/0.4 ML SYR SUBQ SCH (09:00)
[2024-02-01] MEDS: ENOXAPARIN 30 MG/0.3 ML SYR SUBQ SCH (09:11)
[2024-02-01] MEDS: PIPERACILLIN/TAZOBACTAM 2.25 GM in DEXTROSE 5% 50 ML IV SCH (15:00)
[2024-02-01 16:00] VITALS: BP 146/51; PULSE 87; RESP 18; TEMP 97.7; O2SAT 96
[2024-02-01 18:55] VITALS: TEMP 97.7
[2024-02-01] MEDS ORDERED: DEXTROSE 50% 50 ML SYR IVP PRN (19:55)
[2024-02-01 20:00] VITALS: BP 131/68; PULSE 104; RESP 20; TEMP 98.5; O2SAT 94
[2024-02-01] MEDS: BLOOD GLUCOSE MONITORING 1 DEV DEV FS SCH (20:27)
[2024-02-02 05:58] LABS: BASOPHILS % (AUTO) 0.5 % (0.0-2.0); EOSINOPHILS % (AUTO) 0.1 % (0.0-4.0); HEMATOCRIT 37.7 % (36-52); HEMOGLOBIN 12.7 g/dL (12.0-18.0); LYMPHOCYTES % (AUTO) 10.9 % (20.5-51.1); MEAN CORPUSCULAR HEMOGLOBIN 29 pg (27-31); MEAN CORPUSCULAR HGB CONC 34 g/dL (33-37); MEAN CORPUSCULAR VOLUME 86.2 fL (80-94); MONOCYTES # (AUTO) 0.8 K/uL (0.8-1.0); MONOCYTES % (AUTO) 8.9 % (1.7-9.3); NEUTROPHILS # (AUTO) 7.6 K/uL (1.8-7.7); NEUTROPHILS % (AUTO) 79.6 % (42.2-75.2); PLATELET COUNT (AUTO) 148 K/uL (140-450); RED BLOOD CELL COUNT(AUTO) 4.37 MIL/uL (4.20-6.10); RED CELL DISTRIBUTION WIDTH 15.2 % (11.6-13.7); WHITE BLOOD COUNT (AUTO) 9.5 K/uL (4.8-10.8)
[2024-02-02 06:06] LABS: POTASSIUM 4.6 mmol/L (3.5-5.1)
[2024-02-02 06:07] LABS: ANION GAP 17.4 (8-16); CALCIUM 8.3 mg/dL (8.5-10.1); CARBON DIOXIDE 26.2 mmol/L (21-32)
[2024-02-02 06:09] LABS: TOTAL BILIRUBIN 0.5 mg/dL (0.0-1.0)
[2024-02-02 06:10] LABS: ALBUMIN 2.6 g/dL (3.4-5.0); PHOSPHORUS 6.8 mg/dL (2.5-4.9); TOTAL PROTEIN, SERUM 8.7 g/dL (6.4-8.2)
[2024-02-02 06:12] LABS: CREATININE 11.7 mg/dL (0.6-1.3)
[2024-02-02 08:00] VITALS: BP 118/55; PULSE 87; PULSE 98; RESP 18; RESP 19; TEMP 97.6; O2SAT 98; O2SAT 99
[2024-02-02 16:00] VITALS: BP 122/57; PULSE 82; RESP 18; TEMP 98; O2SAT 99
[2024-02-02 20:00] VITALS: BP 111/50; PULSE 84; RESP 18; TEMP 97.6; O2SAT 98
[2024-02-02] MEDS: INSULIN LISPRO SLIDING SCALE 100 UNITS/ML VIAL SUBQ PRN (20:29)
[2024-02-03 04:00] VITALS: BP 116/62; PULSE 85; RESP 18; TEMP 97; O2SAT 98
[2024-02-03 08:00] VITALS: BP 125/59; PULSE 79; PULSE 82; RESP 17; RESP 18; TEMP 97.8; O2SAT 100; O2SAT 98
[2024-02-03] MEDS: POLYETHYLENE GLYCOL 17 GM/PKT PO SCH (09:00)
[2024-02-03] MEDS ORDERED: VANCOMYCIN 500 MG VIAL PO SCH ×2 (12:00)
[2024-02-03] MEDS: VANCOMYCIN HCL 25 MG/ML SOLN PO SCH (12:00)
[2024-02-03 16:00] VITALS: BP 114/60; PULSE 78; RESP 18; TEMP 98.8; O2SAT 100
[2024-02-03 20:00] VITALS: BP 116/59; PULSE 88; RESP 18; TEMP 97.4; O2SAT 99
[2024-02-04 08:00] VITALS: BP 141/60; PULSE 88; PULSE 98; RESP 18; RESP 19; TEMP 98.1; O2SAT 99
[2024-02-04 09:31] LABS: BASOPHILS # (AUTO) 0.1 K/uL (0.00-0.22); BASOPHILS % (AUTO) 0.7 % (0.0-2.0); EOSINOPHILS # (AUTO) 0.2 K/uL (0-0.4); EOSINOPHILS % (AUTO) 1.8 % (0.0-4.0); HEMATOCRIT 38.8 % (36-52); HEMOGLOBIN 12.8 g/dL (12.0-18.0); LYMPHOCYTES # (AUTO) 0.8 K/uL (2.0-11.5); LYMPHOCYTES % (AUTO) 10.2 % (20.5-51.1); MEAN CORPUSCULAR HEMOGLOBIN 28 pg (27-31); MEAN CORPUSCULAR HGB CONC 33 g/dL (33-37); MEAN CORPUSCULAR VOLUME 86.2 fL (80-94); MONOCYTES # (AUTO) 0.8 K/uL (0.8-1.0); MONOCYTES % (AUTO) 9.3 % (1.7-9.3); NEUTROPHILS # (AUTO) 6.5 K/uL (1.8-7.7); PLATELET COUNT (AUTO) 155 K/uL (140-450); WHITE BLOOD COUNT (AUTO) 8.4 K/uL (4.8-10.8)
[2024-02-04 09:42] LABS: ANION GAP 18.8 (8-16); CALCIUM 8.4 mg/dL (8.5-10.1); CARBON DIOXIDE 24.5 mmol/L (21-32); POTASSIUM 4.3 mmol/L (3.5-5.1)
[2024-02-04 09:49] LABS: CREATININE 14.9 mg/dL (0.6-1.3)
[2024-02-04 16:00] VITALS: BP 144/59; PULSE 87; RESP 18; TEMP 97; O2SAT 99
[2024-02-04 20:00] VITALS: BP 109/59; PULSE 95; RESP 18; RESP 20; TEMP 97.6; O2SAT 95; O2SAT 99
[2024-02-05 04:00] VITALS: BP 111/65; PULSE 95; RESP 20; TEMP 97.6; O2SAT 100
[2024-02-05 06:20] LABS: ANION GAP 16.6 (8-16); CALCIUM 8.5 mg/dL (8.5-10.1); CARBON DIOXIDE 27.2 mmol/L (21-32); POTASSIUM 3.8 mmol/L (3.5-5.1)
[2024-02-05 07:32] LABS: RED CELL DISTRIBUTION WIDTH 14.3 % (11.6-13.7); WHITE BLOOD COUNT (AUTO) 5.7 K/uL (4.8-10.8)
[2024-02-05 07:36] LABS: BASOPHILS # (AUTO) 0.1 K/uL (0.00-0.22); BASOPHILS % (AUTO) 0.9 % (0.0-2.0); EOSINOPHILS # (AUTO) 0.1 K/uL (0-0.4); EOSINOPHILS % (AUTO) 1.7 % (0.0-4.0); HEMATOCRIT 36.7 % (36-52); HEMOGLOBIN 12.5 g/dL (12.0-18.0); MEAN CORPUSCULAR HEMOGLOBIN 29 pg (27-31); MEAN CORPUSCULAR HGB CONC 34 g/dL (33-37); MEAN CORPUSCULAR VOLUME 84.7 fL (80-94); MONOCYTES # (AUTO) 0.8 K/uL (0.8-1.0); MONOCYTES % (AUTO) 14.1 % (1.7-9.3); NEUTROPHILS # (AUTO) 3.8 K/uL (1.8-7.7); NEUTROPHILS % (AUTO) 66.3 % (42.2-75.2); PLATELET COUNT (AUTO) 144 K/uL (140-450); RED BLOOD CELL COUNT(AUTO) 4.33 MIL/uL (4.20-6.10)
[2024-02-05 07:41] LABS: CREATININE 10.4 mg/dL (0.6-1.3)
[2024-02-05] MEDS ORDERED: VANC125C5 PO (12:11)
== END 2024-02-05 12:45 | disposition home or self-care (01) | DRG 371 ==
LOC: MED 18:20 → MTU 02-01 03:10 → MMU 02-01 07:45
PROVIDERS: ADMIT Student in an Organized Health Care Education/Training Program; ATTEND Student in an Organized Health Care Education/Training Program
PROC: 5A1D70Z Performance of Urinary Filtration, Intermittent, Less than 6 Hours Per Day (ICD-10-PCS; principal; 2024-02-01)
PROC: 5A1D70Z Performance of Urinary Filtration, Intermittent, Less than 6 Hours Per Day (ICD-10-PCS; 2024-02-04)
DX: A04.72 Enterocolitis due to Clostridium difficile, not specified as recurrent (principal); N18.6 End stage renal disease; I12.0 Hypertensive chronic kidney disease with stage 5 chronic kidney disease or end stage renal disease; E87.1 Hypo-osmolality and hyponatremia; R65.10 Systemic inflammatory response syndrome (SIRS) of non-infectious origin without acute organ dysfunction; Z99.2 Dependence on renal dialysis; E11.22 Type 2 diabetes mellitus with diabetic chronic kidney disease; E78.5 Hyperlipidemia, unspecified; E11.319 Type 2 diabetes mellitus with unspecified diabetic retinopathy without macular edema; D63.1 Anemia in chronic kidney disease; Z88.8 Allergy status to other drugs, medicaments and biological substances; Z79.899 Other long term (current) drug therapy
CPT/HCPCS: 36415; 74176; 80048; 80076; 83690; 83735; 85025; 93005; 96374; 96375; 99285; J2270; J2405; 80053; 82272; 82948; 84100; 87070; 87081; J0696; J1650; J1815; J2543; J3475; J7060